=== PATIENT | female | born 1945 | race Caucasian/White ===

== ENCOUNTER 2024-04-01 01:58 | Emergency (ER) | payer MEDICARE, SELFPAY ==
[2024-04-01 01:59] VITALS: BP 157/78; PULSE 103; RESP 19; TEMP 36.3; O2SAT 92; BMI 38.5
--- NOTE | 2024-04-01 02:22 | EDS_ITS ---
HPI HPI - Fall History of Present Illness Chief Complaint: Fall Informant: patient Narrative Narrative: 2 and half days ago, patient states she went [place] a casino and tripped and fell, injuring her right side, she has been having pain in her right lateral rib cage ever since. When she raises her right arm, it hurts there but not in her shoulder or her arm. She denies any other pain or injury but the pain has not gone away, so she presents to a.m. for this. She denies dyspnea. It hurts to move more than anything else when she takes a deep breath it does not hurt. [facility] Medical History (Updated 04/01/24 @ 03:[address] Marco Velasquez MD) Hypothyroidism Hyperlipidemia Type 2 diabetes mellitus Hypertension Home Medications ?Medication ?Instructions ?Recorded ?Last Taken ?Type aspirin 81 mg tablet,delayed 81 mg PO DAILY 04/01/24 Unknown History release (Adult Low Dose Aspirin) citalopram 10 mg tablet (Celexa) 10 mg PO DAILY 04/01/24 Unknown History ezetimibe 10 mg tablet 10 mg PO DAILY 04/01/24 Unknown History glimepiride 4 mg tablet 8 mg PO DAILY 04/01/24 Unknown History hydralazine 50 mg tablet 50 mg PO DAILY 04/01/24 Unknown History hydrochlorothiazide 25 mg tablet 25 mg PO DAILY 04/01/24 Unknown History hydrocodone-acetaminophen 5-325mg 1 tab PO Q6H PRN PRN Pain 4 days 04/01/24 Unknown Rx 5mg-325mg #15 TABLETS levothyroxine 112 mcg tablet 112 mcg PO DAILY 04/01/24 Unknown History lisinopril 20 mg tablet 20 mg PO DAILY 04/01/24 Unknown History metformin 500 mg tablet,extended 1,500 mg PO DAILY 04/01/24 Unknown History release 24 hr metoprolol tartrate 100 mg tablet 100 mg PO DAILY 04/01/24 Unknown History semaglutide 0.25 mg or 0.5 mg (2 0.25 mg subcut FR 04/01/24 Unknown History mg/3 mL) subcutaneous pen injector (Ozempic) simvastatin 80 mg tablet 80 mg PO DAILY 04/01/24 Unknown History Allergy/AdvReac Type Severity Reaction Status Date / Time ampicillin AdvReac PT UNSURE Verified 04/01/24 01:59 OF REACTION Surgical History History of bilateral knee replacement Hx of appendectomy Social History Smoking Status: Never smoker ROS ROS ED Constitutional Constitutional ED: Denies chills or fever(s) Eyes Eyes: Denies change in vision or diplopia ENT ENT ED: Denies rhinorrhea or sore throat Cardiovascular Cardiovascular: Reports as per HPI and chest pain; Denies palpitations Respiratory/Chest Respiratory/Chest: Denies cough or dyspnea Gastrointestinal Gastrointestinal: Denies abdominal pain, diarrhea, nausea or vomiting Genitourinary Genitourinary ED: Denies dysuria or hematuria Musculoskeletal Musculoskeletal: Denies back pain or neck pain Integumentary Denies abscess or rash Neurologic Neurologic: Denies headache(s), paresthesias or weakness Psychiatric Psychiatric: Denies anxiety or suicidal thoughts EXAM Physical Exam Const Vital Signs: 04/01/24 01:59 04/01/24 01:59 Temperature 97.4 F L Temperature Source Temporal Pulse Rate 103 H Respiratory Rate 19 H Respiratory Effort Normal Non-Labored Respiratory Depth Normal Respiratory Pattern Normal Blood Pressure 157/78 H Blood Pressure Mean 104 Pulse Ox 92 Oxygen Delivery Method Room Air Room Air Positive well nourished, well developed and obese General Appearance ED: well developed and NAD Nutritional Appearance: obese HEENT Reports moist mucous membranes normocephalic and atraumatic Face and Sinus: Negative for facial tenderness Eyes PERRL and EOMs intact bilaterally Visual Acuity: other Other Details: no entrapment or pain with extraocular movements Neck full ROM and supple General: Negative for tenderness Chest Wall inspection of chest normal and palpation of chest normal Chest Narrative: Right lateral rib cage/chest wall in the anterior axillary line approximately ribs 4-5 area no crepitance or step-off or subcutaneous emphysema palpable. Chest: symmetrical chest wall rise and tenderness; Negative for crepitus Resp normal respiratory effort and clear to auscultation bilaterally Percussion: other equal BS bilat Cardio regular rate, regular rhythm and no murmurs Rate: regular rate Rhythm: regular rhythm GI non-tender and non-distended Auscultation: normoactive bowel sounds Palpation: soft Back/Spine General Back: other FROM Extremity normal to inspection Extremity Narrative: Full range of motion throughout all 4 extremities without difficulty. General Extremety ED: Negative for edema, pulses abnormal or tenderness General Extremity: Negative for edema or pulses abnormal Neuro oriented x3, CN's II-XII intact bilaterally and no sensory deficits noted [place] Coma Scale: document GCS findings Spontaneous Obeys Commands Oriented 15 Sensorium / Orientation: awake and alert Motor Exam: strength 5/5 throughout Psych mental status grossly normal and thought process normal Skin no rashes or lesions noted and no wounds Lesions: no lesions Rashes: no rashes MDM MDM MDM Narrative Medical decision making narrative: 5 view x-ray series of the right rib cage including a PA chest show a single fracture rib #4 on my interpretation with no pneumothorax. Patient reassured, treatments pain medication and not rib binders which she was considering. Adv ised her not to do this given the increased risk of pneumonia. She is given a dose of [place] here as well as a prescription for at home, supportive care advised we discussed reasons to return, otherwise she may experience weeks of pain and can follow-up with her doctor if it is not getting better. Discharge Plan Triage Chief Complaint: Fall ED Provider: Marco Velasquez Dx/Rx/DC Orders Clinical Impression: Closed fracture of rib of right side, Fall from slip, trip, or stumble Instructions: ED Rib Fracture Prescriptions: New hydrocodone-acetaminophen 5-325 mg tablet 1 tab PO Q6H PRN PRN (Reason: Pain) 4 Days Qty: 15 0RF No Action metformin 500 mg tablet extended release 24 hr 1,500 mg PO DAILY Patient Comments: TAKE 3 TABLETS BY MOUTH ONCE DAILY metoprolol tartrate 100 mg tablet 100 mg PO DAILY Patient Comments: TAKE 1 TABLET BY MOUTH TWICE DAILY simvastatin 80 mg tablet 80 mg PO DAILY Patient Comments: [NO ORIGINAL SIG] lisinopril 20 mg tablet 20 mg PO DAILY Patient Comments: [NO ORIGINAL SIG] hydrochlorothiazide 25 mg tablet 25 mg PO DAILY Patient Comments: TAKE 1 TABLET BY MOUTH ONCE DAILY ezetimibe 10 mg tablet 10 mg PO DAILY Patient Comments: TAKE 1 TABLET BY MOUTH ONCE DAILY levothyroxine 112 mcg tablet 112 mcg PO DAILY Patient Comments: TAKE 1 TABLET BY MOUTH IN THE MORNING ON AN EMPTY STOMACH glimepiride 4 mg tablet 8 mg PO DAILY Patient Comments: TAKE 1 TABLET BY MOUTH TWICE DAILY citalopram [Celexa] 10 mg tablet 10 mg PO DAILY hydralazine 50 mg tablet 50 mg PO DAILY Patient Comments: TAKE 1 TABLET BY MOUTH ONCE DAILY aspirin [Adult Low Dose Aspirin] 81 mg tablet,delayed release (DR/EC) 81 mg PO DAILY Ozempic 0.25 mg or 0.5 mg (2 mg/3 mL) pen injector 0.25 mg SUBCUT FR Patient Comments: [NO ORIGINAL SIG] Primary Care Provider: Elle Beckett Referrals: Elle Beckett DO [Primary Care Provider] - 10-14 Days if not better Print Language: Ukrainian Disposition Disposition: Home, Self Care
--- NOTE | 2024-04-01 02:30 | RAD_ITS ---
INDICATION: fall/injury EXAMINATION/TECHNIQUE: X-RAY - XR Ribs Unilateral W/ PA Chest Min 3 Views COMPARISON: No relevant prior comparison study available FINDINGS: SOFT TISSUES: No soft tissue swelling or gas. BONES: Nondisplaced right lateral fourth rib fracture. No sclerotic or destructive changes observed. VISUALIZED LUNGS: Clear. No pneumothorax. RAD/Ribs Uni Min 3V w/PA Chest IMPRESSION: Nondisplaced right lateral fourth rib fracture. No additional fractures are seen. Electronically Signed: Osiel Oliveira MD at 3:25 EDT ,
[2024-04-01] MEDS: HYDROcodone Bitartrate/Apap 5/325 Tablet PO (03:52)
[2024-04-01 03:53] VITALS: BP 144/70; PULSE 81; RESP 16; TEMP 36.3; O2SAT 90
== END 2024-04-01 03:54 | disposition home or self-care (01) ==
PROVIDERS: Emergency Provider Emergency Medicine; PCP Internal Medicine; Visit Provider Emergency Medicine
DX: S22.31XA Fracture of one rib, right side, initial encounter for closed fracture (principal); E11.9 Type 2 diabetes mellitus without complications; W01.0XXA Fall on same level from slipping, tripping and stumbling without subsequent striking against object, initial encounter; Y93.01 Activity, walking, marching and hiking; Y92.59 Other trade areas as the place of occurrence of the external cause; E03.9 Hypothyroidism, unspecified; E78.5 Hyperlipidemia, unspecified; I10 Essential (primary) hypertension; Z79.82 Long term (current) use of aspirin; Z79.899 Other long term (current) drug therapy; Z79.84 Long term (current) use of oral hypoglycemic drugs; Z79.85 Long-term (current) use of injectable non-insulin antidiabetic drugs; Z90.49 Acquired absence of other specified parts of digestive tract
CPT/HCPCS: 71101; 99283

== ENCOUNTER 2025-01-23 18:10 | Inpatient (IN) | payer MEDICARE, SELFPAY ==
[2025-01-23] VITALS (8 sets, daily range): BP systolic 117–155; BP diastolic 53–105; PULSE 79–116; RESP 16–30; TEMP 36.8–39.1; O2SAT 84–100; BMI 35.5
--- NOTE | 2025-01-23 18:59 | EKG12_ITS ---
Test Reason : DYSRHYTHMIA Blood Pressure : */* mmHG Vent. Rate : 115 BPM Atrial Rate : 115 BPM P-R Int : 132 ms QRS Dur : 76 ms QT Int : 372 ms P-R-T Axes : 61 6 50 degrees QTcB Int : 514 ms Sinus tachycardia Nonspecific ST abnormality Abnormal ECG Confirmed by SE CHANDRA, ALDAIR ([id number]), video news editor MARY MADSEN ([id number]) on 01/26/2025 11:02:32 AM Referred By: Confirmed By: ALDAIR SAEZ MD
--- NOTE | 2025-01-23 19:13 | CT_ITS ---
EXAM: FINDINGS: * ACUTE: No acute infarct or hemorrhage. No mass effect or herniation. * BRAIN PARENCHYMA: Patchy supratentorial hypodensity, nonspecific, but likely secondary to moderate chronic microvascular ischemia. * VENTRICLES/EXTRA-AXIAL SPACES: Moderate generalized volume loss with concordant ventricular enlargement. * EXTRACRANIAL STRUCTURES: Visualized osseous structures are normal. Soft tissues are normal. CT/Brain/Head without Contrast IMPRESSION: No acute intracranial findings. Chronic microvascular ischemia and involutional changes. CLINICAL HISTORY: AMS Reading Location: [facility]
--- NOTE | 2025-01-23 19:16 | EX.ED.DYSGE1 ---
HPI History of Present Illness Chief Complaint: Nausea/Vomiting/Diarrhea Narrative Narrative: Patient is a 79-year-old female with past medical history of hypothyroidism, hypertension, type 2 diabetes, hyperlipidemia who presented to the emergency department chief complaint of altered mental status not feeling well. According to patient's family member she has been ill for the last several weeks however her brother noted that he left the house and when he came back to check on her she was staring out into space. He eventually got her to state that she was cold and not feeling well. She then went unresponsive again he states that he told her that if she would not respond to him he he was going to call EMS. Patient's brother stated that she was not responding so therefore EMS was called and she was brought here for the valuation management. According to them she was hypoxic she is not normally on oxygen at home. [facility] Medical History Hypothyroidism Hyperlipidemia Type 2 diabetes mellitus Hypertension Home Medications ?Medication ?Instructions ?Recorded ?Last Taken ?Type aspirin 81 mg tablet,delayed 81 mg PO DAILY 04/01/24 Unknown History release (Adult Low Dose Aspirin) citalopram 10 mg tablet (Celexa) 10 mg PO DAILY 04/01/24 Unknown History ezetimibe 10 mg tablet 10 mg PO DAILY 04/01/24 Unknown History glimepiride 4 mg tablet 8 mg PO DAILY 04/01/24 Unknown History hydralazine 50 mg tablet 50 mg PO DAILY 04/01/24 Unknown History hydrochlorothiazide 25 mg tablet 25 mg PO DAILY 04/01/24 Unknown History hydrocodone-acetaminophen 5-325mg 1 tab PO Q6H PRN PRN Pain 4 days 04/01/24 Unknown Rx 5mg-325mg #15 TABLETS levothyroxine 112 mcg tablet 112 mcg PO DAILY 04/01/24 Unknown History lisinopril 20 mg tablet 20 mg PO DAILY 04/01/24 Unknown History metformin 500 mg tablet,extended 1,500 mg PO DAILY 04/01/24 Unknown History release 24 hr metoprolol tartrate 100 mg tablet 100 mg PO DAILY 04/01/24 Unknown History semaglutide 0.25 mg or 0.5 mg (2 0.25 mg subcut FR 04/01/24 Unknown History mg/3 mL) subcutaneous pen injector (Ozempic) simvastatin 80 mg tablet 80 mg PO DAILY 04/01/24 Unknown History Allergy/AdvReac Type Severity Reaction Status Date / Time ampicillin AdvReac PT UNSURE Verified 01/23/25 18:18 OF REACTION Surgical History History of bilateral knee replacement Hx of appendectomy Social History Smoking Status: Never smoker ROS ROS ED ROS Narrative Constitutional: Denies any fevers, chills, headaches, lightness, dizziness Eyes: Denies change in vision double vision blurry vision Cardiovascular: Denies chest pain or palpitations Respiratory: Complains of cough but states that she has been coughing for significant time Abdomen: Complains of nausea and vomiting states that she had a bowel movement yesterday denies abdominal pain : Denies urinary symptoms Neurological: Denies numbness, weakness, tingling Musculoskeletal: Denies back pain Skin: Denies rashes or lesions EXAM Physical Exam Narrative Exam Narrative: General: Patient lying in bed rest comfortably did not appear to be in acute distress Head: Atraumatic, normocephalic Eyes: PERRL bilaterally, EOMI bilaterally, no conjunctival injection noted Neck: Soft, supple, trachea midline Cardiovascular: Patient tachycardic with a regular rhythm no murmurs gallops rubs are noted Respiratory: Clear to auscultation bilaterally Abdomen: Soft, nondistended, tender to palpation Extremities: +4/5 strength noted in the bilateral upper and lower extremities, radial pulses +2/4 in the bilateral extremities, no pedal edema on exam Neurological: Patient following commands as she was at [facility] year is 2024 and we were going into spring. NIH is 0 GCS 15 Skin: Warm, dry, intact no rashes or lesions noted Const Vital Signs: 01/23/25 18:15 01/23/25 18:15 01/23/25 18:18 Temperature 102.4 F H 102.4 F H Temperature Source Oral Oral Pulse Rate 116 H 115 H 115 H Respiratory Rate 18 16 25 H Blood Pressure 155/70 H 155/70 H 155/70 H Blood Pressure Mean 98 98 98 Pulse Ox 92 84 91 Oxygen Delivery Method Nasal Cannula Room Air Nasal Cannula Oxygen Flow Rate (L/min) 3 3 01/23/25 19:11 01/23/25 19:16 01/23/25 20:00 Temperature 98.4 F Temperature Source Oral Pulse Rate 79 104 H Respiratory Rate 19 H 17 Blood Pressure 139/53 H 150/80 H Blood Pressure Mean 81 103 Pulse Ox 100 92 Oxygen Delivery Method Room Air Nasal Cannula Oxygen Flow Rate (L/min) 2 01/23/25 21:00 01/23/25 21:39 01/23/25 22:00 Temperature 98.4 F 98.4 F 98.3 F Temperature Source Oral Oral Pulse Rate 102 H 102 H 100 Respiratory Rate 30 H 30 H 20 H Blood Pressure 117/81 H 117/81 H 150/105 H Blood Pressure Mean 93 93 120 Pulse Ox 94 94 98 Oxygen Delivery Method Nasal Cannula Oxygen Flow Rate (L/min) 01/23/25 23:00 01/24/25 00:00 Temperature 98.3 F 98.3 F Temperature Source Oral Oral Pulse Rate 86 90 Respiratory Rate 28 H 22 H Blood Pressure 137/83 H 143/62 H Blood Pressure Mean 101 89 Pulse Ox 96 98 Oxygen Delivery Method Nasal Cannula Nasal Cannula Oxygen Flow Rate (L/min) 2 2 MDM MDM MDM Narrative Medical decision making narrative: Patient is a 79-year-old female who presented to the emergency department the chief complaint of altered mental status, hypoxia and not feeling well. On the differential diagnose includes but not limited to ACS, pneumonia, press for infection secondary viral etiology, intracranial hemorrhage, hypercapnia, UTI. Once workup is obtained reviewed she will be reevaluated. Patient CBC reviewed and was significant for leukocytosis of 17,000, hemoglobin 13.8, INR normal at 1, PT of 12.9. Patient's venous blood gas showed pH 7.59, sodium was noted 134, potassium noted to be low indicating hypokalemia at 2.6 she was given 40 mill equivalents orally and 40 mill equivalents intravenously. Patient's creatinine normal at 0.83. Patient's lactic acid elevated 2.7, troponin was noted be 62 with a delta troponin obtained noted be 59. Patient's EKG showed sinus tachycardia with a rate of [address] changes noted in leads V3 through V5. Patient proBNP elevated 888. Patient's urinalysis was significant for urinary tract infection with positive nitrites 100 leukocyte esterase 25-50 white cells with 2+ bacteria she was given a gram Rocephin. Urine was sent for culture. Patient's chest x-ray was reviewed which showed no acute cardiopulmonary processes as reviewed by myself and by radiology. Patient CT head and brain without contrast showed no acute intracranial findings chronic microvascular ischemia and involutional changes noted. At this point time patient will warrant admission to the hospital for her hypoxia, altered mental status and her urinary tract infection. Will discuss with hospitalist Discussed case with hospitalist Dr. Ventura who would like a CT abdomen pelvis added on. Since we are getting a CT abdomen pelvis and have no great explanation for her hypoxia at this point time we will also add on a CT angiography of the chest. Patient will be admitted to the intensive care unit for further evaluation management. Patient was notified all question concerns answered at bedside. Patient admitted at 12:36 AM. At 2114 reperfusion assessment performed and patient remains hypertensive therefore no vasopressors indicated. Lab Data Labs: Laboratory Results - last 24 hr 01/23/25 01/23/25 01/23/25 19:30 19:32 20:11 WBC 17.7 H RBC 4.87 Hgb 13.8 Hct 41.7 MCV 85.6 MCH 28.3 MCHC 33.1 RDW Std Deviation 40.6 RDW Coeff of Janna 13.0 Plt Count TNP MPV 9.7 Immature Gran % (Auto) 1.100 H Neut % (Auto) 89.8 H Lymph % (Auto) 3.5 L Rooks % (Auto) 4.6 Eos % (Auto) 0.3 Baso % (Auto) 0.7 Absolute Neuts (auto) 15.9 H Absolute Lymphs (auto) 0.62 L Nucleated RBC % 0 Platelet Estimate MOD INC Plt Morphology Comment CLUMPED Polychromasia RARE PT Cancelled INR Cancelled APTT Cancelled Sodium 134 Potassium 2.6 L* Chloride 94 L Carbon Dioxide 24.5 Anion Gap 15 BUN 15 Creatinine 0.83 Estim Creat Clear Calc 51.46 Est GFR (MDRD) Non-Af 72 BUN/Creatinine Ratio 18.3 Glucose 293 H Lactic Acid 2.7 H* Calcium 8.7 Total Bilirubin 0.53 AST 19 ALT 14 Alkaline Phosphatase 103 Troponin T High Sens 62 H* Troponin T Hi Sens 2 Hr NT pro BNP II Total Protein 6.4 Albumin 3.2 L Globulin 3.3 Albumin/Globulin Ratio 1.0 TSH 2.040 Free T4 1.20 Free T3 pg/dL 2.2 Urine Color Yellow Urine Clarity Sl. Cloudy Urine pH 6.0 Ur Specific [place] 1.015 Urine Protein 100 H Urine Glucose (UA) 250 H Urine Ketones 5 H Urine Occult Blood 25 H Urine Nitrite Positive H Urine Bilirubin Negative Urine Urobilinogen 1 H Ur Leukocyte Esterase 100 H Urine RBC 5-10 SEEN Urine WBC 25-50 SEEN Ur Squamous Epith Cells 0-5 SEEN Urine Bacteria 2+ Urine Mucus 1+ 01/23/25 01/23/25 21:18 22:20 WBC RBC Hgb Hct MCV MCH MCHC RDW Std Deviation RDW Coeff of Janna Plt Count MPV Immature Gran % (Auto) Neut % (Auto) Lymph % (Auto) Rooks % (Auto) Eos % (Auto) Baso % (Auto) Absolute Neuts (auto) Absolute Lymphs (auto) Nucleated RBC % Platelet Estimate Plt Morphology Comment Polychromasia PT 12.9 INR 1.0 APTT 22.7 L Sodium Potassium Chloride Carbon Dioxide Anion Gap BUN Creatinine Estim Creat Clear Calc Est GFR (MDRD) Non-Af BUN/Creatinine Ratio Glucose Lactic Acid Calcium Total Bilirubin AST ALT Alkaline Phosphatase Troponin T High Sens Troponin T Hi Sens 2 Hr 59 H* NT pro BNP II 888 Total Protein Albumin Globulin Albumin/Globulin Ratio TSH Free T4 Free T3 pg/dL Urine Color Urine Clarity Urine pH Ur Specific [place] Urine Protein Urine Glucose (UA) Urine Ketones Urine Occult Blood Urine Nitrite Urine Bilirubin Urine Urobilinogen Ur Leukocyte Esterase Urine RBC Urine WBC Ur Squamous Epith Cells Urine Bacteria Urine Mucus ABG Data ABG results: ABG 01/23/25 19:43 Specimen Type PITER Sample Site Not entered VBG pH 7.59 H VBG pO2 56 H VBG HCO3 29 H VBG Total CO2 30 VBG O2 Sat (Calc) 93 H VBG Base Excess 7 H POC Mix VBG pCO2 Pt Tmp 30.0 L O2 Delivery Device Cannula Radiography Diagnostic Testing: Clinical Impression(s) from Imaging Studies Brain CT 01/23/25 19:13 IMPRESSION: No acute intracranial findings. Chronic microvascular ischemia and involutional changes. CLINICAL HISTORY: AMS [facility]-Ray 01/23/25 19:50 IMPRESSION: NEGATIVE CHEST Reading Location: [facility] Discharge Plan Triage Chief Complaint: Nausea/Vomiting/Diarrhea ED Provider: Cedrick Vazquez Dx/Rx/DC Orders Clinical Impression: Acute hypoxemic respiratory failure, Altered mental status, Urinary tract infection, Acidosis, lactic Prescriptions: No Action metformin 500 mg tablet extended release 24 hr 1,500 mg PO DAILY Patient Comments: TAKE 3 TABLETS BY MOUTH ONCE DAILY metoprolol tartrate 100 mg tablet 100 mg PO DAILY Patient Comments: TAKE 1 TABLET BY MOUTH TWICE DAILY simvastatin 80 mg tablet 80 mg PO DAILY Patient Comments: [NO ORIGINAL SIG] lisinopril 20 mg tablet 20 mg PO DAILY Patient Comments: [NO ORIGINAL SIG] hydrochlorothiazide 25 mg tablet 25 mg PO DAILY Patient Comments: TAKE 1 TABLET BY MOUTH ONCE DAILY ezetimibe 10 mg tablet 10 mg PO DAILY Patient Comments: TAKE 1 TABLET BY MOUTH ONCE DAILY levothyroxine 112 mcg tablet 112 mcg PO DAILY Patient Comments: TAKE 1 TABLET BY MOUTH IN THE MORNING ON AN EMPTY STOMACH glimepiride 4 mg tablet 8 mg PO DAILY Patient Comments: TAKE 1 TABLET BY MOUTH TWICE DAILY citalopram [Celexa] 10 mg tablet 10 mg PO DAILY hydralazine 50 mg tablet 50 mg PO DAILY Patient Comments: TAKE 1 TABLET BY MOUTH ONCE DAILY aspirin [Adult Low Dose Aspirin] 81 mg tablet,delayed release (DR/EC) 81 mg PO DAILY Ozempic 0.25 mg or 0.5 mg (2 mg/3 mL) pen injector 0.25 mg SUBCUT FR Patient Comments: [NO ORIGINAL SIG] hydrocodone-acetaminophen 5-325 mg tablet 1 tab PO Q6H PRN PRN (Reason: Pain) 4 Days Qty: 15 0RF Primary Care Provider: Elle Beckett Referrals: Elle Beckett DO [Primary Care Provider] - Print Language: St Helenian Disposition Disposition: Acute Care Hospital [facility]
[2025-01-23 19:47] LABS: Blood Gas Specimen Type VEN; O2 Delivery Device Cannula; SITE Not entered; VBG BASE EXCESS 7 mmol/L (-1.0-3.5); VBG Bicarbonate 29 mmol/L (22-26); VBG PO2 56 mmHg (25-40); VBG SO2 93 % (50-70); VBG TCO2 30 mmol/L (23-33); VBG pH 7.59 (7.32-7.42)
--- NOTE | 2025-01-23 19:50 | RAD_ITS ---
PROCEDURE: CHEST PA AND LATERAL 01/23/2025 REASON FOR EXAM: SOB TECHNIQUE: Frontal and lateral views of the chest. COMPARISON: 04/01/2024 FINDINGS: The heart size is normal. The mediastinal contour is unremarkable. The lungs are clear. The bones are unremarkable. RAD/Chest PA and Lateral IMPRESSION: NEGATIVE CHEST Reading Location: [id number]
[2025-01-23 19:54] LABS: Color, Urine Yellow (Yellow); Glucose, Dipstick 250 mg/dl (Normal); Ketone-Dipstick 5 mg/dl (Negative); Leukocyte Esterase-Dipstick 100 /ul (Negative); Nitrite-Dipstick Positive (Negative); Occult Blood-Urine 25 /ul (Negative); Protein-Dipstick 100 mg/dl (Negative); Specific Gravity, Urine 1.015 (1.002-1.030); Urine Bilirubin Dipstick Negative (Negative); Urine Clarity Sl. Cloudy (Clear); Urine Urobilinogen 1 mg/dl (Normal)
[2025-01-23] MEDS: 0.9% Normal Saline (1000mL) 1,000 ML 999 ML IV ×3 (20:09→21:49)
[2025-01-23] MEDS: Acetaminophen 500 MG Tablet 1000 MG PO (20:14)
[2025-01-23 20:15] LABS: Lactic Acid 2.7 mmol/L (0.0-2.0)
[2025-01-23 20:23] LABS: Bacteria 2+ /hpf (None Seen); Mucous, Urine 1+ /hpf (<or=2+); Red Blood Cells-Urine 5-10 SEEN /hpf (0-5); Squamous Epithelial Cells - UA 0-5 SEEN /hpf (5-10); White Blood Cells 25-50 SEEN /hpf (0-5)
[2025-01-23 20:31] LABS: Absolute Lymphocyte Count 0.62 X10^3/uL (0.83-4.51); Absolute Neutrophil Count 15.9 X10^3/uL (2.0-7.7); Basophil# 0.12 X10^3/uL; Basophil% 0.7 % (0-1); Eosinophil# 0.05 X10^3/uL; Eosinophils% 0.3 % (0-5); Hematocrit 41.7 % (37-47); Hemoglobin 13.8 g/dL (12.0-15.0); Lymphocyte # 0.62 X10^3/ul (0.83-4.51); Lymphocyte % 3.5 % (19-41); Mean Corp Hgb Conc 33.1 g/dL (32-36); Mean Corpuscular Hgb 28.3 pg (27.0-32.0); Mean Corpuscular Volume 85.6 fL (81-99); Mean Platelet Vol. 9.7 fl (6.2-12.0); Monocyte# 0.82 X10^3/uL; Monocyte% 4.6 % (0-10); NRBC Flagged by Analyzer 0 % (0-5); Neutrophil # 15.86 X10^3/uL (2.7-7.7); Neutrophil % 89.8 % (47-70); POSITIVE COUNT YES; RBC Distribution Width SD 40.6 fl (35.1-43.9); Red Blood Count 4.87 M/mm3 (4.2-5.4); White Blood Count 17.7 K/mm3 (4.4-11.0)
[2025-01-23 21:00] LABS: Free T3 2.2 pg/mL (2.18-3.98)
[2025-01-23 21:05] LABS: AST(SGOT) 19 U/L (<=31); Alanine Aminotransfer ALT/SGPT 14 U/L (<=34); Albumin, Serum 3.2 g/dL (3.4-4.8); Alkaline Phosphatase 103 U/L (35-104); Anion Gap 15 (5-15); BUN 15 mg/dL (4-19); BUN/Creat Ratio 18.3 RATIO (10-20); Calcium,Total 8.7 mg/dL (7.6-11.0); Carbon Dioxide 24.5 mmol/L (21.0-32.0); Chloride 94 mmol/L (98-108); Creatinine, Serum 0.83 mg/dL (0.70-1.20); EST Glomerular Filtration Rate 72 (>60); Estimated Creatinine Clearance 51.46 ml/min (50-250); Globulin 3.3 g/dL (2.2-4.2); Glucose 293 mg/dL (70-99); Potassium 2.6 mmol/L (3.3-5.1); Protein, Total 6.4 g/dL (5.9-8.4); Sodium Level 134 mmol/L (133-145); Total Bilirubin 0.53 mg/dL (0.00-1.30); Troponin T High Sensitivity 62 ng/L (<=14)
[2025-01-23] MEDS: Ceftriaxone 1 GM/50 ML BAG IV (21:16)
[2025-01-23] MEDS: Potassium Chloride Oral Tablet 20 MEQ 40 MEQ PO (21:27)
[2025-01-23] MEDS: Potassium Chloride 10mEq/100mL 10 MEQ/100 ML IV.SOLN. 100 MEQ IV BOLUS ×3 (21:47→23:59)
[2025-01-23 21:53] LABS: Differential Indicated SCAN CRITERIA MET; Platelet Morphology CLUMPED
[2025-01-23 21:54] LABS: Prothrombin Time (Protime)PT. 12.9 SECONDS (11.7-14.9)
[2025-01-23 21:58] LABS: Platelet Estimate MOD INC (ADEQ); Polychromasia RARE
[2025-01-23 21:59] LABS: Partial Thromboplast Time 22.7 Seconds (24.1-36.2)
[2025-01-23 23:36] LABS: Troponin T High Sens 2 HR 59 ng/L (<=14)
[2025-01-23 23:59] LABS: Pro- Brain NATRIURETIC PEPTIDE 888 pg/mL (<=1800)
[2025-01-24] VITALS (17 sets, daily range): BP systolic 112–192; BP diastolic 44–91; PULSE 72–97; RESP 16–25; TEMP 36.4–37.6; O2SAT 92–99; BMI 37.8
--- NOTE | 2025-01-24 00:34 | HP.PCM.HOS_ITS ---
[facility] - General General Date of Admission: 01/24/25 Date of Service: 01/24/25 Chief Complaint: SOB, Nausea and Vomiting with AMS. HPI Narrative MERCY MORROW, is a 79 F with a past medical history of essential hypertension; on metoprolol, lisinopril, hydralazine and hydrochlorothiazide, hyperlipidemia; on ezetimibe and simvastatin, hypothyroidism; on levothyroxine, obesity; with BMI of 35.5 this admission on semaglutide sq q. Sunday, DM-2; of unknown control on metformin and glimepiride, history of depression; on citalopram, history of appendectomy, listed allergy to ampicillin (?), [place]; with subsequent Right rib cage fracture (03/2024) and OA; with bilateral TKR's who presents to [facility] ER complaining of shortness of breath, nausea and vomiting with altered mental status. Ms. Morrow is not a fully-reliable historian at this time so permission was gathered from chart, medical staff and computer. According to the records the patient's brother reported to the ER physician she had been ill for several weeks but then when he came to check on her earlier this evening she was obviously confused and staring out into space. He eventually coaxed her into communicating and she indicated she was cold and not feeling well followed by another episode of unresponsiveness which eventually caused him to activate EMS. The brother also indicated the patient is not on oxygen at home and is not chronically dyspneic. In the ER she was noted to have a UA grossly positive for Acute Cystitis; with microscopic hematuria with Fever of 102.4 degrees Fahrenheit present on admission along with corresponding Leukocytosis of 17.7 K with Left-shift of 1.1% and Lactic Acidosis of 2.7 mmol/L present on admission consistent with suspected Sepsis complicated by Acute Respiratory Alkalosis with Hypoxia with VBG indicating pH 7.59/VBG PaO2 56 mmHg/VBG HCO3 29 mmol/L saturating 93% on 2L NC due to suspected Aspiration Pneumonia compounded by severe Hypokalemia of 2.6 mmol/L present on admission with incidentally noted elevated troponin T of 62 ng/L present on admission suspected to be due to Acute Cardiac Strain all combining to cause clinical evidence of Acute Metabolic Encephalopathy. CT scan of the chest, abdomen and pelvis were requested to be done with results pending at this time. She was then admitted to the ICU for ongoing care for status expected to extend beyond 2 midnights. [facility] Medical History Hypothyroidism Hyperlipidemia Type 2 diabetes mellitus Hypertension Home Medications ?Medication ?Instructions ?Recorded ?Last Taken ?Type aspirin 81 mg tablet,delayed 81 mg PO DAILY 04/01/24 U nknown History release (Adult Low Dose Aspirin) citalopram 10 mg tablet (Celexa) 10 mg PO DAILY Unknown History ezetimibe 10 mg tablet 10 mg PO DAILY 04/01/24 Unkn own History glimepiride 4 mg tablet 8 mg PO DAILY 04/01/24 Unkno wn History hydralazine 50 mg tablet 50 mg PO DAILY 04/01/24 Unkn own History hydrochlorothiazide 25 mg tablet 25 mg PO DAILY Unknown History hydrocodone-acetaminophen 5-325mg 1 tab PO Q6H PRN PRN Pain 4 days 04/01/24 Unknown Rx 5mg-325mg #15 TABLETS levothyroxine 112 mcg tablet 112 mcg PO DAILY 04/01/24 Unknown History lisinopril 20 mg tablet 20 mg PO DAILY 04/01/24 Unkn own History metformin 500 mg tablet,extended 1,500 mg PO DAILY Unknown History release 24 hr metoprolol tartrate 100 mg tablet 100 mg PO DAILY 03/13 12/05 Unknown History semaglutide 0.25 mg or 0.5 mg (2 0.25 mg subcut FR Unknown History mg/3 mL) subcutaneous pen injector (Ozempic) simvastatin 80 mg tablet 80 mg PO DAILY 04/01/24 Unkn own History Allergy/AdvReac Type Severity Reaction Status Date / Time ampicillin AdvReac PT UNSURE Verified 01/23/25 18:18 OF REACTION Surgical History History of bilateral knee replacement Hx of appendectomy Social History Smoking Status: Never smoker ROS ROS Narrative Full review systems was not possible due to patient's metabolic encephalopathy. Vital Signs Vital Signs Vital Signs: 01/23/25 18:15 01/23/25 18:15 01/23/25 18:18 Temperature 102.4 F H 102.4 F H Temperature Source Oral Oral Pulse Rate 116 H 115 H 115 H Respiratory Rate 18 16 25 H Blood Pressure 155/70 H 155/70 H 155/70 H Blood Pressure Mean 98 98 98 Pulse Ox 92 84 91 Oxygen Delivery Method Nasal Cannula Room Air Nasal Cannula Oxygen Flow Rate (L/min) 3 3 01/23/25 19:11 01/23/25 19:16 01/23/25 20:00 Temperature 98.4 F Temperature Source Oral Pulse Rate 79 104 H Respiratory Rate 19 H 17 Blood Pressure 139/53 H 150/80 H Blood Pressure Mean 81 103 Pulse Ox 100 92 Oxygen Delivery Method Room Air Nasal Cannula Oxygen Flow Rate (L/min) 2 01/23/25 21:00 01/23/25 21:39 01/23/25 22:00 Temperature 98.4 F 98.4 F 98.3 F Temperature Source Oral Oral Pulse Rate 102 H 102 H 100 Respiratory Rate 30 H 30 H 20 H Blood Pressure 117/81 H 117/81 H 150/105 H Blood Pressure Mean 93 93 120 Pulse Ox 94 94 98 Oxygen Delivery Method Nasal Cannula Oxygen Flow Rate (L/min) 01/23/25 23:00 01/24/25 00:00 Temperature 98.3 F 98.3 F Temperature Source Oral Oral Pulse Rate 86 90 Respiratory Rate 28 H 22 H Blood Pressure 137/83 H 143/62 H Blood Pressure Mean 101 89 Pulse Ox 96 98 Oxygen Delivery Method Nasal Cannula Nasal Cannula Oxygen Flow Rate (L/min) 2 2 Weight Weight: 181 lb 14.102 oz Body Mass Index (BMI) 35.5 Physical Exam Const alert and no apparent distress Constitutional Narrative: Obese, dyspneic, confused and chronically ill in appearance. General Appearance: cooperative Orientation / Consciousness: confused HEENT normocephalic, head/scalp atraumatic, hearing grossly normal bilaterally and moist oral mucous membranes Eyes PERRL and EOMs intact bilaterally Neck no lymphadenopathy and supple Resp normal respiratory effort, no retractions, no use of accessory muscles and clear to auscultation bilaterally Cardio regular rate and regular rhythm GI normal to inspection, nondistended, normoactive bowel sounds, soft to palpation, non-tender and non-distended GI Narrative: Obese. Extremity normal to inspection and full ROM Skin Skin Narrative: Patient has evidence of rash, abscess, wounds or jaundice. Neuro CN's II-XII intact bilaterally, moves all extremities and no focal motor deficits Sensorium / Orientation: awake, alert, oriented to person and oriented to place Speech: speech normal Psych affect normal Results Medical Records Data Attestation: I reviewed the patient's medical records Lab / Micro Data Attestation: I reviewed the patient's lab results. 01/23/25 20:11 01/23/25 20:11 Labs: Laboratory Results - last 24 hr 01/23/25 19:30: Urine Color Yellow, Urine Clarity Sl. Cloudy, Urine pH 6.0, Ur Specific [place] 1.015, Urine Protein 100 H, Urine Glucose (UA) 250 H, Urine Ketones 5 H, Urine Occult Blood 25 H, Urine Nitrite Positive H, Urine Bilirubin Negative, Urine Urobilinogen 1 H, Ur Leukocyte Esterase 100 H, Urine RBC 5-10 SEEN, Urine WBC 25-50 SEEN, Ur Squamous Epith Cells 0-5 SEEN, Urine Bacteria 2+, Urine Mucus 1+ 01/23/25 19:32: Lactic Acid 2.7 H* 01/23/25 20:11: WBC 17.7 H, RBC 4.87, Hgb 13.8, Hct 41.7, MCV 85.6, MCH 28.3, MCHC 33.1, RDW Std Deviation 40.6, RDW Coeff of Janna 13.0, Plt Count TNP, MPV 9.7, Immature Gran % (Auto) 1.100 H, Neut % (Auto) 89.8 H, Lymph % (Auto) 3.5 L, [place] % (Auto) 4.6, Eos % (Auto) 0.3, Baso % (Auto) 0.7, Absolute Neuts (auto) 15.9 H, Absolute Lymphs (auto) 0.62 L, Nucleated RBC % 0, Platelet Estimate MOD INC, Plt Morphology Comment CLUMPED, Polychromasia RARE, PT Cancelled, INR Cancelled, APTT Cancelled, Sodium 134, Potassium 2.6 L*, Chloride 94 L, Carbon Dioxide 24.5, Anion Gap 15, BUN 15, Creatinine 0.83, Estim Creat Clear Calc 51.46, Est GFR (MDRD) Non-Af 72, BUN/Creatinine Ratio 18.3, Glucose 293 H, Calcium 8.7, Total Bilirubin 0.53, AST 19, ALT 14, Alkaline Phosphatase 103, T roponin T High Sens 62 H*, Total Protein 6.4, Albumin 3.2 L, Globulin 3.3, Albumin/Globulin Ratio 1.0, TSH 2.040, Free T4 1.20, Free T3 pg/dL 2.2 01/23/25 21:18: PT 12.9, INR 1.0, APTT 22.7 L 01/23/25 22:20: Troponin T Hi Sens 2 Hr 59 H*, NT pro BNP II 888 Micro: Microbiology 01/23/25 19:26 Mucosa - Nose SARS-CoV-2, Influenza & RSV (PCR) - Final ABG Data ABG results: ABG 01/23/25 19:43 Specimen Type PITER Sample Site Not entered VBG pH 7.59 H VBG pO2 56 H VBG HCO3 29 H VBG Total CO2 30 VBG O2 Sat (Calc) 93 H VBG Base Excess 7 H POC Mix VBG pCO2 Pt Tmp 30.0 L O2 Delivery Device Cannula Imaging Radiology Impression Brain CT 01/23/25 19:13 IMPRESSION: No acute intracranial findings. Chronic microvascular ischemia and involutional changes. CLINICAL HISTORY: AMS Reading Location: [facility] Chest X-Ray 01/23/25 19:50 IMPRESSION: NEGATIVE CHEST Reading Location: [id number] Imaging Services [address] [place] [id number] CTA Chest W/WO Contrast MR#: [id number] Acct: [id number] Name: MERCY MORROW Rep #: [id number] : 1945 F 79 From: Viet Menendez MD PCP: Dr. Elle Beckett DO Status: ADM IN Study: CTA Chest W/WO Contrast Date of Exam: 01/24/25 Exam# [id number] Ordering Dr: Cedrick Vazquez DO PROCEDURE: CTA CHEST W/WO CONTRAST REASON FOR EXAM: HYPOXIA, SOB TECHNIQUE: CTA imaging of the chest with intravenous contrast. 3D reconstructions. Coronal and sagittal and MIP reformatted images CONTRAST: 100 cc Isovue 370 COMPARISON: None. FINDINGS: No evidence of filling defect to suggest pulmonary embolism. Main pulmonary artery measures 3.5 cm can be seen with pulmonary artery hypertension, nonspecific. Thoracic aorta within limits. Three-vessel coronary calcification appears greatest at the proximal LAD. No pericardial or pleural effusion. The central airways appear patent. Peripheral area of subpleural scarring right middle lobe greater than lingula with subjacent areas of traction bronchiectasis. Bilateral dependent lower lobe atelectasis or possible scarring. Lungs otherwise appear clear. No focal consolidation. Partially imaged lower cervical spondylosis/discogenic change. Note of previous nonacute rib fractures. CT/CTA Chest W/WO Contrast IMPRESSION: No evidence of filling defect to suggest pulmonary embolism. Main pulmonary artery measures 3.5 cm can be seen with pulmonary artery hypertension, nonspecific. Three-vessel coronary calcification appears greatest at the proximal LAD. No pericardial or pleural effusion. The central airways appear patent. Peripheral area of subpleural scarring right middle lobe greater than lingula with subjacent areas of traction bronchiectasis. Bilateral dependent lower lobe atelectasis or possible scarring. Lungs otherwise appear clear. No focal consolidation. One or more dose reduction techniques were used (e.g., Automated exposure control, adjustment of the mA and/or kV according to patient size, use of iterative reconstruction technique). Reading Location: [facility] CC: Dr. Elle Beckett DO; Dr. Cedrick Vazquez DO ~ Maintenance Repairer: Signed -- [facility] Imaging Services [address] [facility] [address] [place], [place] [address] Abdomen/Pelvis W IV Cont ONLY MR#: [id number] Acct: [id number] Name: MERCY MORROW Rep #: [id number] : 1945 F 79 From: Viet Menendez MD PCP: Dr. Elle Beckett DO Status: ADM IN Study: Abdomen/Pelvis W IV Cont ONLY Date of Exam: 01/24/25 Exam# [id number] Ordering Dr: Cedrick Vazquez DO PROCEDURE: ABDOMEN/PELVIS W IV CONT ONLY 01/24/2025 REASON FOR EXAM: N/V TECHNIQUE: CT of the abdomen and pelvis with contrast with coronal and sagittal reformatted images and delayed images through the kidneys CONTRAST: Isovue 370 VOLUME: 100mL One or more dose reduction techniques were used (e.g., Automated exposure control, adjustment of the mA and/or kV according to patient size, use of iterative reconstruction technique. RADIATION DOSE SUMMARY: CTDlvol: 22.49 mGy DLP: 2547.61 mGycm COMPARISON: None. FINDINGS: Small low-density focus within the left lobe of the liver likely hepatic cyst and is too small to characterize. Mild hepatic steatosis suggested. The adrenal glands, pancreas and spleen appear within limits. Prominent appearing gallbladder without stones, pericholecystic free fluid or adjacent stranding identified. The right kidney appears within limits. 4.8 cm cystic focus interpolar to lower pole of the left kidney and is partially exophytic. Adjacent perinephric stranding, edema and thickening of the fascia with mild decrease subjacent nephrogram with possibility of infection or hemorrhage not entirely excluded, clinically correlate. A couple of tiny cortical renal cysts. Aortoiliac atherosclerotic changes without aneurysm. No bowel dilation or free air. A couple scattered noninflamed colonic diverticula. The appendix is not identified, no secondary signs. Appearance of mild diffusely prominent/thickened bladder wall. May represent cystitis, nonspecific.. No free fluid. Multilevel spondylosis/discogenic change. CT/Abdomen/Pelvis W IV Cont ONLY IMPRESSION: 4.8 cm cystic focus interpolar to lower pole of the left kidney and is partially exophytic. Adjacent perinephric stranding, edema and thickening of the fascia with mild decrease subjacent nephrogram with possibility of infection or hemorrhage not entirely excluded, clinically correlate. Appearance of mild diffusely prominent/thickened bladder wall. May represent cystitis, nonspecific.. Reading Location: [facility] CC: Dr. Elle Beckett, DO; Dr. Cedrick Vazquez DO ~ Maintenance Repairer: Signed Assessment & Plan Assessment/Plan (1) Sepsis: QUALIFIERS: Sepsis acute organ dysfunction status: with acute organ dysfunction Sepsis type: sepsis due to unspecified organism Severe sepsis acute organ dysfunction type: encephalopathy Severe sepsis shock status: without septic shock Qualified Code(s): A41.9 - Sepsis, unspecified organism; R65.20 - Severe sepsis without septic shock; G93.41 - Metabolic encephalopathy (2) Acute cystitis with hematuria: (3) Infected kidney cyst: (4) Leukocytosis: QUALIFIERS: Leukocytosis type: unspecified Qualified Code(s): D 72.829 - Elevated white blood cell count, unspecified (5) Lactic acidosis: (6) Aspiration pneumonia: QUALIFIERS: Aspiration pneumonia type: due to vomit Laterality: u nspecified laterality Lung location: unspecified part of lung Qualified Code(s): J69.0 - Pneumonitis due to inhalation of food and vomit (7) Acute respiratory alkalosis: (8) Hypokalemia: (9) Elevated troponin: (10) Acute metabolic encephalopathy: (11) Obesity (BMI 30-39.9): PLAN: Plan 1. UA grossly positive for Acute Cystitis; with microscopic hematuria with Fever of 102.4 degrees Fahrenheit present on admission along with corresponding Leukocytosis of 17.7 K with Left-shift of 1.1% and Lactic Acidosis of 2.7 mmol/L present on admission consistent with suspected Sepsis in the setting of known listed allergy to ampicillin (?) with CT this admission positive for evidence of ~4.8 cm cystic focus interpolar to lower pole of the Left kidney and is partially exophytic with adjacent perinephric stranding, edema and thickening of the fascia with mild decrease of adjacent nephrogram with possibility of infection or hemorrhage not entirely excluded with CT ordered at tail end of ER admission and hospitalist request - Admit to ICU for treatment under the Sepsis protocol. Continue empiric IV ceftriaxone begun in ER and await culture and sensitivity data. Serialize lactates to follow trend. Give acetaminophen as needed for pain or fever. Give ondansetron IV as needed nausea and vomiting. Start pantoprazole IV for GI prophylaxis given her acute severe illness. Finally, I spoke with the urologist on-call and reviewed the radiology results with recommendation to place catheter in the bladder and continue to treat with IV antibiotics and monitor for improvement. Patient may require CT-guided drainage if her condition fails to improve with conservative therapy which may require transfer. 2. Acute Respiratory Alkalosis with Hypoxia with VBG indicating pH 7.59/VBG PaO2 56 mmHg/VBG HCO3 29 mmol/L saturating 93% on 2L NC due to suspected Aspiration Pneumonia in the setting of recent Nausea and Vomiting with AMS complicating #1 - Check STAT ABG and give supplemental oxygen. Start empiric IV metronidazole to cover anaerobes. Placed on aspiration precautions. 3. Severe Hypokalemia of 2.6 mmol/L present on admission compounding #1 & #2 - Give supplemental KCl and then recheck level in a.m. to ensure improvement. 4. Elevated troponin T of 62 ng/L present on admission suspected to be due to Acute Cardiac Strain likely due to #1 - #3 - Serialize troponin. Continue BASA and statin as before plus add full-dose Lovenox in case numbers trend upward. Check echocardiogram to evaluate LVEF. 5. Acute Metabolic Encephalopathy attributable to #1 - #4 - Check TSH, B12, Folate, UDS and RADHA to evaluate for potentially reversible causes of confusion. Minimize [employer]PL[employer]IVE [employer] TECHNICIAN-active medications. Otherwise, continue care plan as outlined above and below monitor for improvement. 6. Obesity; with BMI of 35.5 this admission on semaglutide sq q. Sunday adding to the burden of disease outlined from #1 - #5 -Weight loss will be recommended. Check TSH. This complicates her case and may hamper recovery. 7. Essential Hypertension; on metoprolol, lisinopril, hydralazine and hydrochlorothiazide - Hold scheduled antihypertensives until infections outlined in #1 & #2 have been neutralized. Give hydralazine IV as needed for systolic blood pressure greater than 160 mmHg. 8. Hyperlipidemia; on ezetimibe and simvastatin - Maintain these agents as before and check Lipid Profile in light of #4. 9. Hypothyroidism; on levothyroxine - Continue levothyroxine and check TSH. 10. DM-2; of unknown control on metformin and glimepiride - Hold metformin and glimepiride while admitted. Keep NPO for now and check FSBS q. 6 hours. Check HgbA1c to objectively assess quality of diabetic control. 11. History of depression; on citalopram- Maintain current therapy. 12. History of appendectomy - Noted. 13. History of fall at [employer]; with subsequent Right rib cage fracture (03/2024) - Noted for the sake of completeness. 14. OA; with bilateral TKR's - Give acetaminophen prn as per pain scale noted in #1. 15. DVT/GI prophylaxis - Patient started on full-dose Lovenox for #4. Pantoprazole 40 mg IV daily. Total time: Approximately (but not less than) 75 minutes. Sepsis Attestation Sepsis Alert: Yes Sepsis Attestation: Agree w/Sepsis Date exam was performed: 01/23/25 Time exam was performed: 20:00 Possible Source of Sepsis: Genitourinary Sepsis Organ Dysfunction Criteria Present: Lactic Acid > 2 mmol/L and New/Unexplained change in mental status Supportive Findings: In the ER she was noted to have a UA grossly positive for Acute Cystitis; with microscopic hematuria with Fever of 102.4 degrees Fahrenheit present on admission along with corresponding Leukocytosis of 17.7 K with Left-shift of 1.1% and Lactic Acidosis of 2.7 mmol/L present on admission consistent with suspected Sepsis with CT of abdomen revealing ~4.8 cm cystic focus interpolar to lower pole of the Left kidney and is partially exophytic with adjacent perinephric stranding, edema and thickening of the fascia with mild decrease of adjacent nephrogram with possibility of infection or hemorrhage not entirely excluded complicated by Acute Respiratory Alkalosis with Hypoxia with VBG indicating pH 7.59/VBG PaO2 56 mmHg/VBG HCO3 29 mmol/L saturating 93% on 2L NC due to suspected Aspiration Pneumonia compounded by severe Hypokalemia of 2.6 mmol/L present on admission with incidentally noted elevated troponin T of 62 ng/L present on admission suspected to be due to Acute Cardiac Strain all combining to cause clinical evidence of Acute Metabolic Encephalopathy. Fluid Resuscitation Fluid resuscitation indicated?: Yes Fluid Resuscitation ordered: 30 ml/kg fluid bolus ordered Amount of fluid ordered: 2 Sepsis Note Date exam was performed: 01/24/25 Time exam was performed: 02:00 Sepsis Attestation: Sepsis re-evaluation was performed Response to fluids: Fluid responsive hypotension Charges/Coding Visit Charges Inpatient E&M: 84544 Init Hosp L3
[2025-01-24] MEDS: Potassium Chloride 10mEq/100mL 10 MEQ/100 ML IV.SOLN. 100 MEQ IV BOLUS (01:43)
[2025-01-24 02:17] LABS: Allen Test Positive; Base Excess 3 mmol/L (-2 to +2); Bicarbonate 27.7 mmol/L (22-26); Blood Gas Specimen Type ART; Mode Not entered; O2 Delivery Device Cannula; PO2 87 mmHG (75-100); SITE L Radial; SO2 97 % (95-99); Total Carbon Dioxide 29 mmol/L; pCO2 42.4 mmHg (35-45); pH 7.42 (7.35-7.45)
[2025-01-24] MEDS: Pantoprazole Sodium 40 MG in 0.9% Normal Saline (100mL MB+) 100 ML 330 MG IV ×2 (02:22→22:06)
[2025-01-24] MEDS: Enoxaparin 80 MG/0.8 ML Syringe SC (02:23)
[2025-01-24] MEDS: metroNIDAZOLE 500 MG/100 ML BAG 100 MG IV ×3 (02:25→21:19)
[2025-01-24] MEDS: 0.9% Saline Lock 10 ML Syringe IV ×3 (02:47→10:18)
[2025-01-24 03:13] LABS: Hemoglobin A1c 8.9 % (<=5.6)
[2025-01-24 03:14] LABS: Alcohol, Blood (Medical)-Serum < 10.1 mg/dL (<=10.0)
[2025-01-24 03:24] LABS: Amphetamine Urine NEGATIVE (<1000 ng/mL); Barbiturate Urine NEGATIVE (< 200 ng/mL); Benzodiazepine Urine NEGATIVE (< 200 ng/mL); Buprenorphine Urine NEGATIVE (< 200 ng/mL); Cocaine Urine NEGATIVE (< 300 ng/mL); Fentanyl, Urine NEGATIVE; Methadone Urine NEGATIVE (< 300 ng/mL); Opiates Urine NEGATIVE (< 300 ng/mL); Oxycodone, Urine NEGATIVE (< 100 ng/mL); PCP Urine NEGATIVE (< 25 ng/mL); THC Urine NEGATIVE (< 50 ng/mL)
[2025-01-24 03:30] LABS: Vitamin B12 678 pg/mL (180-914)
[2025-01-24 03:35] LABS: Lactic Acid < 1.0 mmol/L (0.0-2.0)
[2025-01-24 03:50] LABS: Troponin T High Sensitivity 48 ng/L (<=14)
[2025-01-24] MEDS: Levothyroxine 112 MCG Tablet PO (05:35)
[2025-01-24 06:24] LABS: Troponin T High Sens 2 HR 53 ng/L (<=14)
--- NOTE | 2025-01-24 07:24 | PCM.PN.HOSP ---
Reason for Visit Reason for Visit: Diagnoses Sepsis, unspecified organism (01/24/25) Elevated white blood cell count, unspecified (01/24/25) Obesity, unspecified (01/24/25) Acidosis, unspecified (01/24/25) Alkalosis (01/24/25) Hypokalemia (01/24/25) Metabolic encephalopathy (01/24/25) Pneumonitis due to inhalation of food and vomit (01/24/25) Cyst of kidney, acquired (01/24/25) Acute cystitis with hematuria (01/24/25) Severe sepsis without septic shock (01/24/25) Other specified abnormal findings of blood chemistry (01/24/25) Subjective Subjective Patient sitting up in chair, reports she is already beginning to feel better, GI upset starting to improve, awake and alert and answering questions appropriately Objective Data Objective Data Vital Signs: Vital Signs Temp Pulse Resp BP Pulse Ox O2 Del Method O2 Flow Rate 99 F 77 23 H 156/78 H 96 Nasal Cannula 3 01/24/25 06:00 01/24/25 06:00 01/24/25 06:00 01/24/25 06:00 01/24/25 06:00 01/24/25 06:00 01/24/25 06:00 Oxygen Flow Rate (L/min) 3 Oxygen Delivery Method Nasal Cannula Weight: 87.4 kg Body Mass Index (BMI) 37.8 Intake & Output: Intake and Output for Last 24 Hours 01/22/25 01/23/25 01/24/25 23:59 23:59 23:59 Intake Total 2799.45 / 2799.45 410 / 410 Output Total 600 / 600 Balance 2799.45 / 2799.45 -190 / -190 Lab / Micro Data 01/23/25 20:11 01/24/25 05:34 Labs: Laboratory Results - last 24 hr 01/23/25 19:30: Urine Color Yellow, Urine Clarity Sl. Cloudy, Urine pH 6.0, Ur Specific [place] 1.015, Urine Protein 100 H, Urine Glucose (UA) 250 H, Urine Ketones 5 H, Urine Occult Blood 25 H, Urine Nitrite Positive H, Urine Bilirubin Negative, Urine Urobilinogen 1 H, Ur Leukocyte Esterase 100 H, Urine RBC 5-10 SEEN, Urine WBC 25-50 SEEN, Ur Squamous Epith Cells 0-5 SEEN, Urine Bacteria 2+, Urine Mucus 1+ 01/23/25 19:32: Lactic Acid 2.7 H* 01/23/25 20:11: WBC 17.7 H, RBC 4.87, Hgb 13.8, Hct 41.7, MCV 85.6, MCH 28.3, MCHC 33.1, RDW Std Deviation 40.6, RDW Coeff of Janna 13.0, Plt Count TNP, MPV 9.7, Immature Gran % (Auto) 1.100 H, Neut % (Auto) 89.8 H, Lymph % (Auto) 3.5 L, [place] % (Auto) 4.6, Eos % (Auto) 0.3, Baso % (Auto) 0.7, Absolute Neuts (auto) 15.9 H, Absolute Lymphs (auto) 0.62 L, Nucleated RBC % 0, Platelet Estimate MOD INC, Plt Morphology Comment CLUMPED, Polychromasia RARE, PT Cancelled, INR Cancelled, APTT Cancelled, Sodium 134, Potassium 2.6 L*, Chloride 94 L, Carbon Dioxide 24.5, Anion Gap 15, BUN 15, Creatinine 0.83, Estim Creat Clear Calc 51.46, Est GFR (MDRD) Non-Af 72, BUN/Creatinine Ratio 18.3, Glucose 293 H, Calcium 8.7, Total Bilirubin 0.53, AST 19, ALT 14, Alkaline Phosphatase 103, Troponin T High Sens 62 H*, Total Protein 6.4, Albumin 3.2 L, Globulin 3.3, Albumin/Globulin Ratio 1.0, TSH 2.040, Free T4 1.20, Free T3 pg/dL 2.2 01/23/25 21:18: PT 12.9, INR 1.0, APTT 22.7 L 01/23/25 22:20: Troponin T Hi Sens 2 Hr 59 H*, NT pro BNP II 888 01/24/25 02:41: Hemoglobin A1c 8.9, Lactic Acid < 1.0, Troponin T High Sens 48 H D, Vitamin B12 678, Serum Folate Cancelled, Ethyl Alcohol < 10.1 01/24/25 02:49: Urine Opiates Screen NEGATIVE, U Buprenorphine Qual NEGATIVE, Ur Oxycodone Screen NEGATIVE, Urine Methadone Screen NEGATIVE, Urine Fentanyl Screen NEGATIVE, Ur Barbiturates Screen NEGATIVE, Ur Phencyclidine Scrn NEGATIVE, Ur Amphetamines Screen NEGATIVE, U Benzodiazepines Scrn NEGATIVE, Urine Cocaine Screen NEGATIVE, U Cannabinoids Screen NEGATIVE 01/24/25 05:34: Troponin T Hi Sens 2 Hr 53 H Micro: Microbiology 01/23/25 19:26 Mucosa - Nose SARS-CoV-2, Influenza & RSV (PCR) - Final ABG Data ABG results: ABG 01/23/25 01/24/25 19:43 02:13 Specimen Type PITER ART Sample Site Not entered L Radial pH 7.42 Bicarbonate Actual 27.7 H Total CO2 29 Base Excess 3 H O2 Saturation 97 O2 % 2.0 ABG pCO2 42.4 ABG pO2 87 Giovany Test Positive VBG pH 7.59 H VBG pO2 56 H VBG HCO3 29 H VBG Total CO2 30 VBG O2 Sat (Calc) 93 H VBG Base Excess 7 H POC Mix VBG pCO2 Pt Tmp 30.0 L O2 Delivery Device Cannula Cannula Vent Mode Not entered Radiography Diagnostic Testing: Radiology Impression Brain CT 01/23/25 19:13 IMPRESSION: No acute intracranial findings. Chronic microvascular ischemia and involutional changes. CLINICAL HISTORY: AMS Reading Location: [facility] Chest X-Ray 01/23/25 19:50 IMPRESSION: NEGATIVE CHEST Reading Location: [facility] Abdomen/Pelvis CT 01/24/25 00:34 IMPRESSION: 4.8 cm cystic focus interpolar to lower pole of the left kidney and is partially exophytic. Adjacent perinephric stranding, edema and thickening of the fascia with mild decrease subjacent nephrogram with possibility of infection or hemorrhage not entirely excluded, clinically correlate. Appearance of mild diffusely prominent/thickened bladder wall. May represent cystitis, nonspecific.. Reading Location: [id number] Chest CTA 01/24/25 00:34 IMPRESSION: No evidence of filling defect to suggest pulmonary embolism. Main pulmonary artery measures 3.5 cm can be seen with pulmonary artery hypertension, nonspecific. Three-vessel coronary calcification appears greatest at the proximal LAD. No pericardial or pleural effusion. The central airways appear patent. Peripheral area of subpleural scarring right middle lobe greater than lingula with subjacent areas of traction bronchiectasis. Bilateral dependent lower lobe atelectasis or possible scarring. Lungs otherwise appear clear. No focal consolidation. One or more dose reduction techniques were used (e.g., Automated exposure control, adjustment of the mA and/or kV according to patient size, use of iterative reconstruction technique). Reading Location: [facility] Physical Exam Narrative General: Alert, oriented, no apparent distress HEENT: Atraumatic, normocephalic Eyes: Anicteric, normal conjunctiva, extraocular movements grossly intact Neck: Supple Respiratory: Clear to auscultation bilaterally, normal respiratory effort Cardiovascular: Regular rate GI: Soft, nontender, nondistended Extremities: No edema Musculoskeletal: Moving all extremities Neuro: No overt focal neurological deficits Skin: No rashes appreciated Psych: Cooperative Assessment & Plan Assessment/Plan (1) Urinary tract infection: (2) Sepsis: QUALIFIERS: Sepsis acute organ dysfunction status: with acute organ dysfunction Sepsis type: sepsis due to unspecified organism Severe sepsis acute organ dysfunction type: encephalopathy Severe sepsis shock status: without septic shock Qualified Code(s): A41.9 - Sepsis, unspecified organism; R65.20 - Severe sepsis without septic shock; G93.41 - Metabolic encephalopathy PLAN: Plan # Sepsis secondary to urinary tract infection?urine and blood cultures gram-negative rods -Patient with metabolic encephalopathy, fever 102.4, lactic acid of 2.7, leukocytosis of 17.7 with left shift and elevated troponin of 62, with heart rate 115 and patient tachypneic with respiratory rate in the 30s on arrival, also hypoxic at 84% on room air with no history of home O2 -UA appeared infectious-growing gram-negative rods -Kimbrough cultures-growing gram-negative rods -CT chest/abdomen/pelvis obtained and left kidney with a 4.8 cm cystic focus interpolar to lower pole that is partially exophytic with adjacent perinephric stranding, edema, and thickening of fascia with mild decrease subadjacent nephrogram with possibility of infection or hemorrhage not entirely excluded -Dr. Smith with urology contacted and recommended Pak placement and antibiotics, formal consult placed -May need aspiration when IR available on Sunday, appreciate urology recommendations -Patient improving on Rocephin and Flagyl # Metabolic encephalopathy secondary to sepsis with urinary tract infection -CT head negative -Patient confused on admission, suspect this is secondary to patient's infection/sepsis, treat underlying etiology # Hypoxia -Suspect this may have been associated with sepsis as patient was 84% on room air but significantly improved with treatment of underlying infection, wean O2 -CTA with no PE or other acute abnormalities # Elevated troponin -Suspect secondary to acute illness with sepsis -Initial troponin 62 and subsequently down trended -Suspect this is all secondary to the acute illness and not a primary cardiac complaint given patient did not develop chest pain and troponins down trended, will change Lovenox to DVT prophylaxis and continue aspirin and Zetia #Hypertension -Patient hypertensive, if remains stable will need to add back blood pressure medications #Hypokalemia -Replaced -Repeat in the AM #Type 2 diabetes mellitus -Glucose checks and sliding scale insulin #Hypothyroidism -Continue Synthroid #Depression/anxiety -Continue home medications #DVT ppx: Lovenox subcu Helena Bates MD Charges/Coding Visit Charges Inpatient E&M: 11547 Subs Hosp L2
[2025-01-24 07:28] LABS: Cholesterol 82 mg/dL (<=200); High Density Lipoprotein 16 mg/dL; Low Density Lipoprotein Calc. 43 mg/dL; Triglycerides 113 mg/dL; Very Low Density Lipoprotein 23 mg/dL (5-40); cholesterol:hdl ratio screen 5.16
--- NOTE | 2025-01-24 09:33 | CASEMGMT ---
TARA DUBON Assessment: Face to Face with pt for initial transition planning/care coordination assessment. TARA DUBON introduced self and role at [facility], pt voices understanding and consents to assessment. Pt is A&O x4 and answers all questions appropriately at this time. Pt sitting up in chair in no distress. Care providers, pharmacy, and demographics verified/updated. Strata: 1 Admitting Dx: UTI with sepsis, aspiration pneumonia, hypokalemia PCP: Sujit Specialists: Denies Preferred Pharmacy: [facility] Insurance: [facility] Prescription Benefit: yes LNOK: Son, Wolf; Sister, Alba Living Arrangements: Pt lives with son in a 2 story home with 1 step to enter. ADLs: Pt I with ADLs and IADLs Transportation: Pt drives self and denies concerns with transportation. DME: [facility], but does not use it. HHC/SNF: Denies Hx of. Pt states no concerns with going home at time of dc. TARA DUBON discussed possible O2 needs at time of DC, provided a verbal list of DME providers in the area. Pt preference is [facility] if she requires O2 at time of DC. Pt states no further concerns/needs. CM to follow. Advised pt to ask CM if any further question/concerns/needs arise, voices understanding. Pt Goal: Home Plan: Home, follow for O2. Chuck PACHECO CM
[2025-01-24 09:37] LABS: Anion Gap 13 (5-15); BUN 11 mg/dL (4-19); BUN/Creat Ratio 14.1 RATIO (10-20); Chloride 102 mmol/L (98-108); EST Glomerular Filtration Rate 74 (>60); Estimated Creatinine Clearance 55.13 ml/min (50-250); Glucose 183 mg/dL (70-99); Potassium 4.2 mmol/L (3.3-5.1); Sodium Level 140 mmol/L (133-145)
--- NOTE | 2025-01-24 10:13 | CASEMGMT ---
According to [employer] choice PPO website, the following tertiary facilities are in network: [facility]/, [facility], [facility], [facility], [facility], .
[2025-01-24] MEDS: Aspirin E.C. 81 MG Tablet PO (10:18)
[2025-01-24] MEDS: Ezetimibe 10 MG Tablet PO (10:19)
[2025-01-24] MEDS: Citalopram 10 MG Tablet PO (10:19)
[2025-01-24] MEDS: Loperamide 2 MG Capsule PO (15:14)
[2025-01-24] MEDS: Ceftriaxone 1 GM/50 ML BAG IV (21:19)
[2025-01-24] MEDS: hydrALAZINE 20 MG/ML Vial 10 MG IV (22:06)
[2025-01-25] VITALS (12 sets, daily range): BP systolic 148–176; BP diastolic 56–85; PULSE 71–93; RESP 16–18; TEMP 36.4–37.3; O2SAT 93–98; BMI 38.3
[2025-01-25] MEDS: Metoprolol Tartrate 5 MG/5 ML Vial 2.5 MG IV (03:38)
[2025-01-25 04:20] LABS: Absolute Neutrophil Count 7.3 X10^3/uL (2.0-7.7); Basophil# 0.05 X10^3/uL; Basophil% 0.5 % (0-1); Eosinophil# 0.15 X10^3/uL; Eosinophils% 1.6 % (0-5); Hematocrit 36.1 % (37-47); Hemoglobin 12.5 g/dL (12.0-15.0); Lymphocyte % 12.5 % (19-41); Mean Corp Hgb Conc 34.6 g/dL (32-36); Mean Corpuscular Hgb 29.3 pg (27.0-32.0); Mean Corpuscular Volume 84.7 fL (81-99); Mean Platelet Vol. 9.2 fl (6.2-12.0); Monocyte# 0.76 X10^3/uL; Monocyte% 7.9 % (0-10); NRBC Flagged by Analyzer 0 % (0-5); Neutrophil # 7.34 X10^3/uL (2.7-7.7); Neutrophil % 76.6 % (47-70); Platelet Count 390 K/mm3 (150-450); RBC Distribution Width CV 13.3 % (11.6-14.6); RBC Distribution Width SD 41.2 fl (35.1-43.9); Red Blood Count 4.26 M/mm3 (4.2-5.4); White Blood Count 9.6 K/mm3 (4.4-11.0)
[2025-01-25 04:44] LABS: Anion Gap 13 (5-15); BUN 9 mg/dL (4-19); BUN/Creat Ratio 14.4 RATIO (10-20); Calcium,Total 8.7 mg/dL (7.6-11.0); Carbon Dioxide 24.8 mmol/L (21.0-32.0); Chloride 98 mmol/L (98-108); Creatinine, Serum 0.65 mg/dL (0.70-1.20); EST Glomerular Filtration Rate 89 (>60); Estimated Creatinine Clearance 55.56 ml/min (50-250); Glucose 262 mg/dL (70-99); Potassium 3.2 mmol/L (3.3-5.1); Sodium Level 136 mmol/L (133-145)
[2025-01-25] MEDS: metroNIDAZOLE 500 MG/100 ML BAG 100 MG IV (05:53)
[2025-01-25] MEDS: Levothyroxine 112 MCG Tablet PO (05:53)
[2025-01-25] MEDS: Aspirin E.C. 81 MG Tablet PO (08:41)
--- NOTE | 2025-01-25 08:41 | PN.HOSP_ITS ---
Reason for Visit Reason for Visit: Diagnoses Sepsis, unspecified organism (01/24/25) Elevated white blood cell count, unspecified (01/24/25) Obesity, unspecified (01/24/25) Acidosis, unspecified (01/24/25) Alkalosis (01/24/25) Hypokalemia (01/24/25) Metabolic encephalopathy (01/24/25) Pneumonitis due to inhalation of food and vomit (01/24/25) Cyst of kidney, acquired (01/24/25) Acute cystitis with hematuria (01/24/25) Urinary tract infection, site not specified (01/24/25) Severe sepsis without septic shock (01/24/25) Other specified abnormal findings of blood chemistry (01/24/25) Subjective Subjective Patient continues to improve, still some GI upset which she says waxes and wanes, there is a chronic component but she does report it is worse than usual, also reports poor p.o. intake, again component of this is chronic and was nauseous earlier today but does report she often gets nauseous in the morning Objective Data Objective Data Vital Signs: Vital Signs Temp Pulse Resp BP Pulse Ox O2 Del Method O2 Flow Rate 97.5 F L 89 17 176/77 H 93 Room Air 3 01/25/25 08:37 01/25/25 08:37 01/25/25 08:37 01/25/25 08:37 01/25/25 08:37 01/25/25 08:37 01/25/25 07:12 Oxygen Flow Rate (L/min) 3 Oxygen Delivery Method Room Air Weight: 88.632 kg Body Mass Index (BMI) 38.3 Intake & Output: Intake and Output for Last 24 Hours 01/23/25 01/24/25 01/25/25 23:59 23:59 23:59 Intake Total 2799.45 / 2799.45 1370 / 1370 100 / 100 Output Total 1050 / 1050 400 / 400 Balance 2799.45 / 2499.45 320 / 320 -300 / -300 Lab / Micro Data 01/25/25 03:56 01/25/25 03:56 Labs: Laboratory Results - last 24 hr 01/24/25 05:34: Sodium 140, Potassium 4.2, Chloride 102, Carbon Dioxide 25.0, Anion Gap 13, BUN 11, Creatinine 0.80, Estim Creat Clear Calc 55.13, Est GFR (MDRD) Non-Af 74, BUN/Creatinine Ratio 14.1, Glucose 183 H, Calcium 8.0, Serum Folate 19.60 01/25/25 03:56: WBC 9.6, RBC 4.26, Hgb 12.5, Hct 36.1 L, MCV 84.7, MCH 29.3, MCHC 34.6, RDW Std Deviation 41.2, RDW Coeff of Janna 13.3, Plt Count 390, MPV 9.2, Immature Gran % (Auto) 0.900, Neut % (Auto) 76.6 H, Lymph % (Auto) 12.5 L, [place] % (Auto) 7.9, Eos % (Auto) 1.6, Baso % (Auto) 0.5, Absolute Neuts (auto) 7.3, Absolute Lymphs (auto) 1.20, Nucleated RBC % 0, Sodium 136, Potassium 3.2 L , Chloride 98, Carbon Dioxide 24.8, Anion Gap 13, BUN 9, Creatinine 0.65 L, Estim Creat Clear Calc 55.56, Est GFR (MDRD) Non-Af 89, BUN/Creatinine Ratio 14.4, Glucose 262 H, Calcium 8.7 Micro: Microbiology 01/23/25 19:30 Urine, Clean Catch Urine Culture - Final Klebsiella pneumoniae sp pneum 01/23/25 20:11 Blood Culture (Wb) - Left Hand Blood Culture - Preliminary GNR lactose enrollment manager 01/23/25 19:32 Blood Culture (Wb) - Left Hand Blood Culture - Preliminary GNR lactose enrollment manager 01/24/25 02:49 Urine Catheter - Pak Legionella Antigen - Final 01/24/25 02:49 Urine Catheter - Pak Streptococcus pneumoniae Antigen (M - Final 01/24/25 04:35 Mucosa - Nasopharyngeal Respiratory Panel (PCR) - Final 01/23/25 19:26 Mucosa - Nose SARS-CoV-2, Influenza & RSV (PCR) - Final Physical Exam Narrative General: Alert, oriented, no apparent distress HEENT: Atraumatic, normocephalic Eyes: Anicteric, normal conjunctiva, extraocular movements grossly intact Neck: Supple Respiratory: Clear to auscultation bilaterally, normal respiratory effort Cardiovascular: Regular rate GI: Soft, nontender, nondistended Extremities: No edema Musculoskeletal: Moving all extremities Neuro: No overt focal neurological deficits Skin: No rashes appreciated Psych: Cooperative Assessment & Plan Assessment/Plan (1) Urinary tract infection: (2) Sepsis: QUALIFIERS: Sepsis acute organ dysfunction status: with acute organ dysfunction Sepsis type: sepsis due to unspecified organism Severe sepsis acute organ dysfunction type: encephalopathy Severe sepsis shock status: without septic shock Qualified Code(s): A41.9 - Sepsis, unspecified organism; R65.20 - Severe sepsis without septic shock; G93.41 - Metabolic encephalopathy PLAN: Plan # Sepsis secondary to urinary tract infection?urine and blood cultures gram- negative rods -Patient with metabolic encephalopathy, fever 102.4, lactic acid of 2.7, leukocytosis of 17.7 with left shift and elevated troponin of 62, with heart rate 115 and patient tachypneic with respiratory rate in the 30s on arrival, also hypoxic at 84% on room air with no history of home O2 -UA appeared infectious-growing gram-negative rods -Kimbrough cultures-growing gram-negative rods -CT chest/abdomen/pelvis obtained and left kidney with a 4.8 cm cystic focus interpolar to lower pole that is partially exophytic with adjacent perinephric stranding, edema, and thickening of fascia with mild decrease subadjacent nephrogram with possibility of infection or hemorrhage not entirely excluded -Dr. Smith with urology contacted and recommended Pak placement and antibiotics, formal consult placed -May need aspiration when IR available on Sunday, appreciate urology recommendations -Patient improving on Rocephin and Flagyl -01/25: Urine culture growing Klebsiella, blood cultures gram-negative declan lactose enrollment manager but have yet to speciate with sensitivities, suspect this will be the same but still awaiting final result. Given sensitivity to Rocephin we will stop Flagyl at this time. Patient drastically improved, no acute urological intervention or evaluation necessary at this time. It was recommended that patient have repeat CT scan with contrast in 3 to 6 months and if the lesion is stable no further workup necessary. Given patient has improved there is no acute intervention required and no need for transfer. Will plan to remove Pak to verify patient able to urinate prior to DC # Diarrhea -01/25: Patient initially reported chronic component but today reports this is worse than usual and has been more frequent and more in quantity, will check stool studies given she has been on antibiotics, if negative continue supportive care # Metabolic encephalopathy secondary to sepsis with urinary tract infection -CT head negative -Patient confused on admission, suspect this is secondary to patient's infection/sepsis, treat underlying etiology -01/25: Resolved, continue supportive care and antibiotics # Hypoxia -Suspect this may have been associated with sepsis as patient was 84% on room air but significantly improved with treatment of underlying infection, wean O2 -CTA with no PE or other acute abnormalities -01/25: Patient now 93% on room air, respiratory status stable, suspect this was secondary to acute illness, no further plans for additional workup at this time #Hypertension -Patient hypertensive, if remains stable will need to add back blood pressure medications -01/25: Hypertensive, will begin to add back patient's home medications, appears on her med list she takes hydralazine 50 daily however this is usually a 3 times daily to 4 times daily medication, will change to 25 mg 3 times daily, also restart metoprolol, on her med list there is metoprolol tartrate but only once daily, switch this to 50 twice daily #Hypokalemia -Replaced -Repeat in the AM -01/25: Further replacement, repeat tomorrow, if necessary can consider scheduling especially once patient's hydrochlorothiazide resumes Chronic medical problems, medical problems not actively being addressed at this encounter: # Elevated troponin -Suspect secondary to acute illness with sepsis -Initial troponin 62 and subsequently down trended -Suspect this is all secondary to the acute illness and not a primary cardiac complaint given patient did not develop chest pain and troponins down trended, will change Lovenox to DVT prophylaxis and continue aspirin and Zetia #Type 2 diabetes mellitus -Glucose checks and sliding scale insulin #Hypothyroidism -Continue Synthroid #Depression/anxiety -Continue home medications #DVT ppx: Lovenox subcu Helena Bates MD Time spent in the patient's overall evaluation,decision-making process, review of diagnostic data, adjustment of management, discussion with other providers, nursing nursing and ancillary staff involved in patient's care documentation, 37 Minutes Charges/Coding Visit Charges Inpatient E&M: 50218 Subs Hosp L2
[2025-01-25] MEDS: Potassium Chloride Oral Tablet 20 MEQ 60 MEQ PO (09:43)
[2025-01-25] MEDS: hydrALAZINE 25 MG Tablet PO ×3 (09:43→21:36)
[2025-01-25] MEDS: Metoprolol Tartrate 50 MG Tablet PO ×2 (09:44→21:37)
[2025-01-25] MEDS: Atorvastatin Calcium 40 MG Tablet PO (09:44)
[2025-01-25] MEDS: Citalopram 10 MG Tablet PO (09:45)
[2025-01-25] MEDS: Ezetimibe 10 MG Tablet PO (09:45)
[2025-01-25] MEDS: Enoxaparin 40 MG/0.4 ML Syringe SC (09:45)
[2025-01-25] MEDS: Insulin Lispro 100 UNIT/ML INSULN.PEN SC ×3 (11:29→21:37)
[2025-01-25 11:40] LABS: Bedside Glucose 331 mg/dL (74-106)
[2025-01-25 17:26] LABS: Bedside Glucose 231 mg/dL (74-106)
[2025-01-25] MEDS: Ceftriaxone 1 GM/50 ML BAG IV (21:38)
[2025-01-25] MEDS: Pantoprazole Sodium 40 MG in 0.9% Normal Saline (100mL MB+) 100 ML 330 MG IV (21:38)
[2025-01-25 22:09] LABS: Bedside Glucose 279 mg/dL (74-106)
[2025-01-26] VITALS (9 sets, daily range): BP systolic 147–157; BP diastolic 59–85; PULSE 71–81; RESP 16–20; TEMP 36.4–38.2; O2SAT 94–97; BMI 37.8
[2025-01-26] MEDS: Acetaminophen 500 MG Tablet 1000 MG PO (04:15)
[2025-01-26 06:09] LABS: Absolute Lymphocyte Count 1.57 X10^3/uL (0.83-4.51); Absolute Neutrophil Count 7.3 X10^3/uL (2.0-7.7); Basophil# 0.03 X10^3/uL; Basophil% 0.3 % (0-1); Eosinophil# 0.14 X10^3/uL; Eosinophils% 1.4 % (0-5); Hematocrit 35.3 % (37-47); Hemoglobin 11.8 g/dL (12.0-15.0); Lymphocyte # 1.57 X10^3/ul (0.83-4.51); Lymphocyte % 15.6 % (19-41); Mean Corp Hgb Conc 33.4 g/dL (32-36); Mean Corpuscular Hgb 28.3 pg (27.0-32.0); Mean Corpuscular Volume 84.7 fL (81-99); Mean Platelet Vol. 9.1 fl (6.2-12.0); Monocyte# 0.94 X10^3/uL; Monocyte% 9.4 % (0-10); NRBC Flagged by Analyzer 0 % (0-5); Neutrophil # 7.28 X10^3/uL (2.7-7.7); Neutrophil % 72.5 % (47-70); Platelet Count 420 K/mm3 (150-450); RBC Distribution Width CV 13.2 % (11.6-14.6); RBC Distribution Width SD 41.1 fl (35.1-43.9); Red Blood Count 4.17 M/mm3 (4.2-5.4)
[2025-01-26] MEDS: Insulin Lispro 100 UNIT/ML INSULN.PEN SC ×2 (06:14→11:05)
[2025-01-26] MEDS: Levothyroxine 112 MCG Tablet PO (06:14)
[2025-01-26] MEDS: hydrALAZINE 25 MG Tablet PO ×2 (06:14→13:12)
[2025-01-26 06:32] LABS: Anion Gap 13 (5-15); BUN 6 mg/dL (4-19); BUN/Creat Ratio 9.3 RATIO (10-20); Calcium,Total 8.6 mg/dL (7.6-11.0); Carbon Dioxide 25.4 mmol/L (21.0-32.0); Chloride 97 mmol/L (98-108); Creatinine, Serum 0.65 mg/dL (0.70-1.20); EST Glomerular Filtration Rate 89 (>60); Estimated Creatinine Clearance 55.09 ml/min (50-250); Glucose 202 mg/dL (70-99); Potassium 3.5 mmol/L (3.3-5.1); Sodium Level 136 mmol/L (133-145)
[2025-01-26 06:38] LABS: Bedside Glucose 214 mg/dL (74-106)
--- NOTE | 2025-01-26 07:37 | PN.HOSP_ITS ---
Reason for Visit Reason for Visit: Diagnoses Sepsis, unspecified organism (01/24/25) Elevated white blood cell count, unspecified (01/24/25) Obesity, unspecified (01/24/25) Acidosis, unspecified (01/24/25) Alkalosis (01/24/25) Hypokalemia (01/24/25) Metabolic encephalopathy (01/24/25) Pneumonitis due to inhalation of food and vomit (01/24/25) Cyst of kidney, acquired (01/24/25) Acute cystitis with hematuria (01/24/25) Urinary tract infection, site not specified (01/24/25) Severe sepsis without septic shock (01/24/25) Other specified abnormal findings of blood chemistry (01/24/25) Objective Data Objective Data Vital Signs: Vital Signs Temp Pulse Resp BP Pulse Ox O2 Del Method O2 Flow Rate 97.5 F L 81 16 157/82 H 94 Room Air 3 01/26/25 05:00 01/26/25 06:14 01/26/25 03:30 01/26/25 06:14 01/26/25 03:30 01/26/25 03:30 01/25/25 07:12 Oxygen Flow Rate (L/min) 3 Oxygen Delivery Method Room Air Weight: 192 lb 7.417 oz Body Mass Index (BMI) 37.8 Intake & Output: Intake and Output for Last 24 Hours 01/24/25 01/25/25 01/26/25 23:59 23:59 23:59 Intake Total 1370 / 1370 260 / 260 Output Total 1050 / 1050 400 / 900 1050 / 1050 Balance 320 / 320 -140 / -640 -1050 / -1050 Lab / Micro Data 01/26/25 05:24 01/26/25 05:24 Labs: Laboratory Results - last 24 hr 01/25/25 11:22: POC Glucose 331 H 01/25/25 16:59: POC Glucose 231 H 01/25/25 21:35: POC Glucose 279 H 01/26/25 05:24: WBC 10.0, RBC 4.17 L, Hgb 11.8 L, Hct 35.3 L, MCV 84.7, MCH 28.3, MCHC 33.4, RDW Std Deviation 41.1, RDW Coeff of Janna 13.2, Plt Count 420, MPV 9.1, Immature Gran % (Auto) 0.800, Neut % (Auto) 72.5 H, Lymph % (Auto) 15.6 L, [place] % (Auto) 9.4, Eos % (Auto) 1.4, Baso % (Auto) 0.3, Absolute Neuts (auto) 7.3, Absolute Lymphs (auto) 1.57, Nucleated RBC % 0, Sodium 136, Potassium 3.5, Chloride 97 L, Carbon Dioxide 25.4, Anion Gap 13, BUN 6, Creatinine 0.65 L, Estim Creat Clear Calc 55.09, Est GFR (MDRD) Non-Af 89, BUN/Creatinine Ratio 9.3 L, Glucose 202 H, Calcium 8.6 01/26/25 06:12: POC Glucose 214 H Micro: Microbiology 01/25/25 15:15 Stool Clostridioides difficile (PCR) - Final 01/23/25 20:11 Blood Culture (Wb) - Left Hand Blood Culture - Preliminary GNR lactose edge grinder machine 01/23/25 19:30 Urine, Clean Catch Urine Culture - Final Klebsiella pneumoniae sp pneum 01/23/25 19:32 Blood Culture (Wb) - Left Hand Blood Culture - Preliminary GNR lactose edge grinder machine 01/24/25 02:49 Urine Catheter - Pak Legionella Antigen - Final 01/24/25 02:49 Urine Catheter - Pak Streptococcus pneumoniae Antigen (M - Final 01/24/25 04:35 Mucosa - Nasopharyngeal Respiratory Panel (PCR) - Final 01/23/25 19:26 Mucosa - Nose SARS-CoV-2, Influenza & RSV (PCR) - Final Physical Exam Narrative Seen and examined. Tmax 100.8 Fahrenheit about 3:30 AM. Heart rate and blood pressure acceptable. Complain of chronic lower back pain. Did not had kidney or bladder issues in the past therefore has not seen a urologist before. She had Pak catheter removed yesterday Physical exam General: Alert, Oriented x3, Cooperative. BMI 37.8 kg/m?. Obesity grade 2 HEENT: Atraumatic, PERRLA, EOMI, Normocephalic Oral: No Gingival or Mucosal Lesions/ Ulcerations Neck: Supple, No JVD, Negative Carotid Bruits Chest wall/Lungs: Air entry diminished in bilateral lung bases. No crepitation/rhonchi Cardiovascular: Regular rate, Regular Rhythm, Normal S1, Normal S2, No M/G/R Abdomen: Bowel Sounds Present, Soft, Non Tender, Non-Distended : No dysuria. No renal angle tenderness. No suprapubic tenderness. Extremities: No edema, Capillary Refill Less than 3 Seconds Skin: No rashes, No breakdown Musculoskeletal: No Tenderness to Palpation of Joints or Extremities Spine: Mild bilateral paraspinal sacral muscles tenderness Neurological: Cranial nerves II-XII grossly intact, DTR 2+/4. No acute focal neurological deficit. Psych/Mental Status: flat affect Assessment & Plan Assessment/Plan (1) Urinary tract infection: (2) Sepsis: QUALIFIERS: Sepsis acute organ dysfunction status: with acute organ dysfunction Sepsis type: sepsis due to unspecified organism Severe sepsis acute organ dysfunction type: encephalopathy Severe sepsis shock status: without septic shock Qualified Code(s): A41.9 - Sepsis, unspecified organism; R65.20 - Severe sepsis without septic shock; G93.41 - Metabolic encephalopathy PLAN: Plan # Sepsis secondary to urinary tract infection?urine and blood cultures gram- negative rods -Patient with metabolic encephalopathy, fever 102.4, lactic acid of 2.7, leukocytosis of 17.7 with left shift and elevated troponin of 62, with heart rate 115 and patient tachypneic with respiratory rate in the 30s on arrival, also hypoxic at 84% on room air with no history of home O2 -UA appeared infectious-growing gram-negative rods -Kimbrough cultures-growing gram-negative rods -CT chest/abdomen/pelvis obtained and left kidney with a 4.8 cm cystic focus interpolar to lower pole that is partially exophytic with adjacent perinephric stranding, edema, and thickening of fascia with mild decrease subadjacent nephrogram with possibility of infection or hemorrhage not entirely excluded -Dr. Smith with urology contacted and recommended Pak placement and antibiotics, formal consult placed -May need aspiration when IR available on Sunday, appreciate urology recommendations -Patient improving on Rocephin and Flagyl -01/25: Urine culture growing Klebsiella, blood cultures gram-negative declan lactose edge grinder machine but have yet to speciate with sensitivities, suspect this will be the same but still awaiting final result. Given sensitivity to Rocephin we will stop Flagyl at this time. Patient drastically improved, no acute urological intervention or evaluation necessary at this time. It was recommended that patient have repeat CT scan with contrast in 3 to 6 months and if the lesion is stable no further workup necessary. Given patient has improved there is no acute intervention required and no need for transfer. Will plan to remove Pak to verify patient able to urinate prior to DC # Diarrhea -01/25: Patient initially reported chronic component but today reports this is worse than usual and has been more frequent and more in quantity, will check stool studies given she has been on antibiotics, if negative continue supportive care # Metabolic encephalopathy secondary to sepsis with urinary tract infection -CT head negative -Patient confused on admission, suspect this is secondary to patient's infection/sepsis, treat underlying etiology -01/25: Resolved, continue supportive care and antibiotics # Hypoxia -Suspect this may have been associated with sepsis as patient was 84% on room air but significantly improved with treatment of underlying infection, wean O2 -CTA with no PE or other acute abnormalities -01/25: Patient now 93% on room air, respiratory status stable, suspect this was secondary to acute illness, no further plans for additional workup at this time #Hypertension -Patient hypertensive, if remains stable will need to add back blood pressure medications -01/25: Hypertensive, will begin to add back patient's home medications, appears on her med list she takes hydralazine 50 daily however this is usually a 3 times daily to 4 times daily medication, will change to 25 mg 3 times daily, also restart metoprolol, on her med list there is metoprolol tartrate but only once daily, switch this to 50 twice daily #Hypokalemia -Replaced -Repeat in the AM -01/25: Further replacement, repeat tomorrow, if necessary can consider scheduling especially once patient's hydrochlorothiazide resumes Chronic medical problems, medical problems not actively being addressed at this encounter: # Elevated troponin -Suspect secondary to acute illness with sepsis -Initial troponin 62 and subsequently down trended -Suspect this is all secondary to the acute illness and not a primary cardiac complaint given patient did not develop chest pain and troponins down trended, will change Lovenox to DVT prophylaxis and continue aspirin and Zetia #Type 2 diabetes mellitus -Glucose checks and sliding scale insulin #Hypothyroidism -Continue Synthroid #Depression/anxiety -Continue home medications #DVT ppx: Lovenox subcu
[2025-01-26] MEDS: Metoprolol Tartrate 50 MG Tablet PO (09:34)
[2025-01-26] MEDS: Ezetimibe 10 MG Tablet PO (09:34)
[2025-01-26] MEDS: Citalopram 10 MG Tablet PO (09:34)
[2025-01-26] MEDS: Aspirin E.C. 81 MG Tablet PO (09:34)
[2025-01-26] MEDS: Atorvastatin Calcium 40 MG Tablet PO (09:34)
--- NOTE | 2025-01-26 10:02 | DCINST_ITS ---
Discharge Instructions Diet Discharge Diet: No restrictions DC O2, CPAP, BIPAP needs Home O2 Discharge instructions: No Dressing / Incision Discharge Activity: Return to Normal Activity Weight Bearing Status: Weight bearing as tolerated Dressing / Incision Call your doctor if you observe: Fever of 101 or Higher, Coldness, Increased Pain, Numbness or Tingling, Change in Color, Inability to urinate, Inability to have a bowel movement, Shortness of breath, Dizziness, Fainting spells, Swelling in the ankles, Chest pain, Prolonged hiccupping, Increased palpitations (irregular heartbeat) and Calf discomfort Follow Up Care When: IN 2 WEEKS Test Results: Test results from this visit will be discussed in further detail at your follow- up appointment, if applicable. Discharge Plan Admission Admit Date/Time: 01/24/25 01:05 Primary Reason for Your Visit: UTI/bacteremia, acute encephalopathy Attending Provider: Booker Avina Primary Care Provider: Elle Beckett Consulting Providers: Rene Huang; Osvaldo Luevano; Gerald Roberts; Mickey Garcia; Guille Herrmann; Rene Menon; Lucas Meza; Gilbert Burns; Екатерина Tadeo; Joel Reed; Carlos A York; Jake Medel; Angelique Pinzon; Antonio Ramirez; Merari Devries; Korey Jones; Gabriel Asher; Esvin Carrera; Alexander Chapman; Ovidio Roper; Atul Watters; Burt Ball; Evaristo Branham; Sandeep Amaro; Helena Bates; Viet Allred Discharge Orders/Prescriptions Prescriptions: New cephalexin 500 mg capsule 500 mg PO Q6H 7 Days Qty: 28 0RF Continued metformin 500 mg tablet extended release 24 hr 1,500 mg PO DAILY Patient Comments: TAKE 3 TABLETS BY MOUTH ONCE DAILY metoprolol tartrate 100 mg tablet 100 mg PO DAILY Patient Comments: TAKE 1 TABLET BY MOUTH TWICE DAILY simvastatin 80 mg tablet 80 mg PO DAILY Patient Comments: [NO ORIGINAL SIG] lisinopril 20 mg tablet 20 mg PO DAILY Patient Comments: [NO ORIGINAL SIG] hydrochlorothiazide 25 mg tablet 25 mg PO DAILY Patient Comments: TAKE 1 TABLET BY MOUTH ONCE DAILY ezetimibe 10 mg tablet 10 mg PO DAILY Patient Comments: TAKE 1 TABLET BY MOUTH ONCE DAILY levothyroxine 112 mcg tablet 112 mcg PO DAILY Patient Comments: TAKE 1 TABLET BY MOUTH IN THE MORNING ON AN EMPTY STOMACH glimepiride 4 mg tablet 8 mg PO DAILY Patient Comments: TAKE 1 TABLET BY MOUTH TWICE DAILY citalopram [Celexa] 10 mg tablet 10 mg PO DAILY hydralazine 50 mg tablet 50 mg PO DAILY Patient Comments: TAKE 1 TABLET BY MOUTH ONCE DAILY aspirin [Adult Low Dose Aspirin] 81 mg tablet,delayed release (DR/EC) 81 mg PO DAILY Ozempic 0.25 mg or 0.5 mg (2 mg/3 mL) pen injector 0.25 mg SUBCUT FR Patient Comments: [NO ORIGINAL SIG] hydrocodone-acetaminophen 5-325 mg tablet 1 tab PO Q6H PRN PRN (Reason: Pain) 4 Days Qty: 15 0RF Referrals / Follow Up: Rolanda Smith MD [Med Staff - Active Staff] - Within 1 Month Elle Beckett DO [Primary Care Provider] - Within 2 Weeks Booker Aivna MD [Med Staff - Active Staff] - Disposition Disposition (needs filled in before D/C Order can be placed): Home, Self Care
[2025-01-26] MEDS: Acetaminophen 325 MG Tablet 650 MG PO (11:08)
[2025-01-26] MEDS: 0.9% Saline Lock 10 ML Syringe IV (11:08)
[2025-01-26 11:24] LABS: Bedside Glucose 283 mg/dL (74-106)
--- NOTE | 2025-01-26 12:07 | PCM.DC.SUM ---
Providers Date of Admission: 01/24/25 Date of Discharge: 01/26/25 Primary Care Physician: Dr. Elle Beckett, Consultations 01/24/25 01:59 Consult: Mass Communications Instructor / Pulmonary Medicine Routine Consulting Provider: Intensivists/Pulmonary Med Reason for Consult: UTI with Sepsis, Respiratory Alkalosis, Hypokalemia and AMS. EMERGENT Consult: No Notified: Yes Date Notified: 01/24/25 Time Notified: 01:10 Method of Notification: Text 01/26/25 08:44 Consult: Infectious Disease Routine Consulting Provider: Viet Allred Reason for Consult: febrile on UTI with Kleb bacteremia EMERGENT Consult: No Notified: Yes Date Notified: 01/26/25 Time Notified: 08:44 Method of Notification: Verbal Reason For Visit: UTI WITH SEPSIS ASPIRATION PNEUMONIA HYPOKALEMIA Diagnosis Discharge Diagnosis (1) Urinary tract infection: Status: Acute Code(s): N39.0 - Urinary tract infection, site not specified (2) Sepsis: Status: Acute Code(s): A41.9 - Sepsis, unspecified organism Qualifiers: Sepsis type: sepsis due to unspecified organism Sepsis acute organ dysfunction status: with acute organ dysfunction Severe sepsis acute organ dysfunction type: encephalopathy Severe sepsis shock status: without septic shock Qualified Code(s): A41.9 - Sepsis, unspecified organism; R65.20 - Severe sepsis without septic shock; G93.41 - Metabolic encephalopathy Plan # Sepsis secondary to urinary tract infection?urine and blood cultures gram-negative rods -Patient with metabolic encephalopathy, fever 102.4, lactic acid of 2.7, leukocytosis of 17.7 with left shift and elevated troponin of 62, with heart rate 115 and patient tachypneic with respiratory rate in the 30s on arrival, also hypoxic at 84% on room air with no history of home O2 -UA appeared infectious-growing gram-negative rods -Kimbrough cultures-growing gram-negative rods -CT chest/abdomen/pelvis obtained and left kidney with a 4.8 cm cystic focus interpolar to lower pole that is partially exophytic with adjacent perinephric stranding, edema, and thickening of fascia with mild decrease subadjacent nephrogram with possibility of infection or hemorrhage not entirely excluded -Dr. Smith with urology contacted and recommended Pak placement and antibiotics, formal consult placed -01/25: Urine culture growing Klebsiella, blood cultures gram-negative declan lactose drying oven tender but have yet to speciate with sensitivities, suspect this will be the same but still awaiting final result. Given sensitivity to Rocephin we will stop Flagyl at this time. Patient drastically improved, no acute urological intervention or evaluation necessary at this time. It was recommended that patient have repeat CT scan with contrast in 3 to 6 months and if the lesion is stable no further workup necessary. Given patient has improved there is no acute intervention required and no need for transfer. Will plan to remove Pak to verify patient able to urinate prior to DC 01/26: ID was formally consulted and recommended Keflex 500 mg 4 times daily for 1 more week. Patient discharged with follow-up with Dr. Smith. # Diarrhea -01/25: Patient initially reported chronic component but today reports this is worse than usual and has been more frequent and more in quantity, will check stool studies given she has been on antibiotics, if negative continue supportive care 01/26: Diarrhea resolved. Enteric bacterial pathogen panel and C. difficile PCR are negative. Earlier patient had respiratory panel and urinary antigens negative. # Metabolic encephalopathy secondary to sepsis with urinary tract infection -CT head negative -Patient confused on admission, suspect this is secondary to patient's infection/sepsis, treat underlying etiology -01/25: Resolved, continue supportive care and antibiotics # Hypoxia -Suspect this may have been associated with sepsis as patient was 84% on room air but significantly improved with treatment of underlying infection, wean O2 -CTA with no PE or other acute abnormalities -01/25: Patient now 93% on room air, respiratory status stable, suspect this was secondary to acute illness, no further plans for additional workup at this time #Hypertension -Patient hypertensive, if remains stable will need to add back blood pressure medications -01/25: Hypertensive, will begin to add back patient's home medications, appears on her med list she takes hydralazine 50 daily however this is usually a 3 times daily to 4 times daily medication, will change to 25 mg 3 times daily, also restart metoprolol, on her med list there is metoprolol tartrate but only once daily, switch this to 50 twice daily #Hypokalemia -Replaced Resolved. Chronic medical problems, medical problems not actively being addressed at this encounter: # Elevated troponin -Suspect secondary to acute illness with sepsis -Initial troponin 62 and subsequently down trended -Suspect this is all secondary to the acute illness and not a primary cardiac complaint given patient did not develop chest pain and troponins down trended, will change Lovenox to DVT prophylaxis and continue aspirin and Zetia #Type 2 diabetes mellitus -Glucose checks and sliding scale insulin #Hypothyroidism -Continue Synthroid #Depression/anxiety -Continue home medications #DVT ppx: Lovenox subcu Discharge medication reconciliation done. Discharge follow-up instructions completed. Discharge process discussed with the patient and all questions were answered to patient's satisfaction. Follow with PCP in 1 to 2 weeks Total time spent, exact 35 minutes on discharge meds reconciliation, examination, coordination of care with nurses and ancillary staff, review of imaging and blood test and discussion with the patient on follow-up instructions. Medications at Discharge Home Medications aspirin 81 mg tablet,delayed release (Adult Low Dose Aspirin) 81 mg PO DAILY 04/01/24 citalopram 10 mg tablet (Celexa) 10 mg PO DAILY 04/01/24 ezetimibe 10 mg tablet 10 mg PO DAILY 04/01/24 glimepiride 4 mg tablet 8 mg PO DAILY 04/01/24 hydralazine 50 mg tablet 50 mg PO DAILY 04/01/24 hydrochlorothiazide 25 mg tablet 25 mg PO DAILY 04/01/24 hydrocodone-acetaminophen 5-325mg 5mg-325mg 1 tab PO Q6H PRN PRN Pain 4 days #15 TABLETS 04/01/24 levothyroxine 112 mcg tablet 112 mcg PO DAILY 04/01/24 lisinopril 20 mg tablet 20 mg PO DAILY 04/01/24 metformin 500 mg tablet,extended release 24 hr 1,500 mg PO DAILY 04/01/24 metoprolol tartrate 100 mg tablet 100 mg PO DAILY 04/01/24 semaglutide 0.25 mg or 0.5 mg (2 mg/3 mL) subcutaneous pen injector (Ozempic) 0.25 mg subcut FR 04/01/24 simvastatin 80 mg tablet 80 mg PO DAILY 04/01/24 cephalexin 500 mg capsule 500 mg PO Q6H 7 days #28 caps 01/26/25 Physical Exam Narrative Seen and examined. Tmax 100.8 Fahrenheit about 3:30 AM. Heart rate and blood pressure acceptable. Complain of chronic lower back pain. Did not had kidney or bladder issues in the past therefore has not seen a urologist before. She had Pak catheter removed yesterday Physical exam General: Alert, Oriented x3, Cooperative. BMI 37.8 kg/m?. Obesity grade 2 HEENT: Atraumatic, PERRLA, EOMI, Normocephalic Oral: No Gingival or Mucosal Lesions/ Ulcerations Neck: Supple, No JVD, Negative Carotid Bruits Chest wall/Lungs: Air entry diminished in bilateral lung bases. No crepitation/rhonchi Cardiovascular: Regular rate, Regular Rhythm, Normal S1, Normal S2, No M/G/R Abdomen: Bowel Sounds Present, Soft, Non Tender, Non-Distended : No dysuria. No renal angle tenderness. No suprapubic tenderness. Extremities: No edema, Capillary Refill Less than 3 Seconds Skin: No rashes, No breakdown Musculoskeletal: No Tenderness to Palpation of Joints or Extremities Spine: Mild bilateral paraspinal sacral muscles tenderness Neurological: Cranial nerves II-XII grossly intact, DTR 2+/4. No acute focal neurological deficit. Psych/Mental Status: flat affect Weight / BMI Weight Weight: 192 lb 7.417 oz Body Mass Index (BMI) 37.8 ABG / Lab / Microbiology Data 01/26/25 05:24 01/26/25 05:24 Laboratory: Laboratory Results - last 24 hr 01/25/25 16:59: POC Glucose 231 H 01/25/25 21:35: POC Glucose 279 H 01/26/25 05:24: WBC 10.0, RBC 4.17 L, Hgb 11.8 L, Hct 35.3 L, MCV 84.7, MCH 28.3, MCHC 33.4, RDW Std Deviation 41.1, RDW Coeff of Janna 13.2, Plt Count 420, MPV 9.1, Immature Gran % (Auto) 0.800, Neut % (Auto) 72.5 H, Lymph % (Auto) 15.6 L, [place] % (Auto) 9.4, Eos % (Auto) 1.4, Baso % (Auto) 0.3, Absolute Neuts (auto) 7.3, Absolute Lymphs (auto) 1.57, Nucleated RBC % 0, Sodium 136, Potassium 3.5, Chloride 97 L, Carbon Dioxide 25.4, Anion Gap 13, BUN 6, Creatinine 0.65 L, Estim Creat Clear Calc 55.09, Est GFR (MDRD) Non-Af 89, BUN/Creatinine Ratio 9.3 L, Glucose 202 H, Calcium 8.6 01/26/25 06:12: POC Glucose 214 H 01/26/25 11:03: POC Glucose 283 H Microbiology: Microbiology 01/25/25 16:00 Stool Enteric Bacteriology - Final 01/23/25 20:11 Blood Culture (Wb) - Left Hand Blood Culture - Final GNR lactose drying oven tender 01/23/25 19:32 Blood Culture (Wb) - Left Hand Blood Culture - Final Klebsiella pneumoniae sp pneum 01/25/25 15:15 Stool Clostridioides difficile (PCR) - Final 01/23/25 19:30 Urine, Clean Catch Urine Culture - Final Klebsiella pneumoniae sp pneum 01/24/25 02:49 Urine Catheter - Pak Legionella Antigen - Final 01/24/25 02:49 Urine Catheter - Pak Streptococcus pneumoniae Antigen (M - Final 01/24/25 04:35 Mucosa - Nasopharyngeal Respiratory Panel (PCR) - Final 01/23/25 19:26 Mucosa - Nose SARS-CoV-2, Influenza & RSV (PCR) - Final D/C Instructions Discharge Diet: No restrictions Weight Bearing Status: Weight bearing as tolerated Call your doctor if you observe: Fever of 101 or Higher, Coldness, Increased Pain, Numbness or Tingling, Change in Color, Inability to urinate, Inability to have a bowel movement, Shortness of breath, Dizziness, Fainting spells, Swelling in the ankles, Chest pain, Prolonged hiccupping, Increased palpitations (irregular heartbeat) and Calf discomfort DC O2, CPAP, BIPAP Needs Home O2 Discharge instructions: No When: IN 2 WEEKS Meaningful Use Info Meaningful Use Meaningful Use Diagnoses (Choose all that apply): None applicable Ischemic Stroke Statin Dosing Therapy Reference: STATIN DOSE THERAPY REFERENCE: * Patients > 75 years receive moderate or high dose statin therapy. * Patients 75 years or YOUNGER should receive HIGH intensity statin dose unless contraindicated. You will be required to document reason for non-treatment if statin daily dose does not meet guidelines. HIGH DOSE STATIN THERAPY DAILY Atorvastatin > than or = to 40 mg Rosuvastatin > than or = to 20 mg Amlodipine + Atorvastatin > than or = to 2.5/40 mg Ezetimibe + Simvastatin 10/80 mg Simvastatin 80mg Discharge Plan Admission Admit Date/Time: 01/24/25 01:05 Primary Reason for Your Visit: UTI/bacteremia, acute encephalopathy Attending Provider: Booker Avina Primary Care Provider: Elle Beckett Consulting Providers: Rene Huang; Osvaldo Luevano; Gerald Roberts; Mickey Garcia; Guilel Herrmann; Rene Menon; Lucas Meza; Gilbert Burns; Екатерина Tadeo; Joel Reed; Carlos A York; Jake Medel; Angelique Pinzon; Antonio Ramirez; Merari Devries; Robert,Korey; Gabriel Asher; Esvin Carrera; Alexander Chapman; Ovidio Roper; Atul Watters; Burt Ball; Evaristo Branham; Sandeep Amaro; Helena Bates; Viet Allred Discharge Orders/Prescriptions Prescriptions: New cephalexin 500 mg capsule 500 mg PO Q6H 7 Days Qty: 28 0RF Continued metformin 500 mg tablet extended release 24 hr 1,500 mg PO DAILY Patient Comments: TAKE 3 TABLETS BY MOUTH ONCE DAILY metoprolol tartrate 100 mg tablet 100 mg PO DAILY Patient Comments: TAKE 1 TABLET BY MOUTH TWICE DAILY simvastatin 80 mg tablet 80 mg PO DAILY Patient Comments: [NO ORIGINAL SIG] lisinopril 20 mg tablet 20 mg PO DAILY Patient Comments: [NO ORIGINAL SIG] hydrochlorothiazide 25 mg tablet 25 mg PO DAILY Patient Comments: TAKE 1 TABLET BY MOUTH ONCE DAILY ezetimibe 10 mg tablet 10 mg PO DAILY Patient Comments: TAKE 1 TABLET BY MOUTH ONCE DAILY levothyroxine 112 mcg tablet 112 mcg PO DAILY Patient Comments: TAKE 1 TABLET BY MOUTH IN THE MORNING ON AN EMPTY STOMACH glimepiride 4 mg tablet 8 mg PO DAILY Patient Comments: TAKE 1 TABLET BY MOUTH TWICE DAILY citalopram [Celexa] 10 mg tablet 10 mg PO DAILY hydralazine 50 mg tablet 50 mg PO DAILY Patient Comments: TAKE 1 TABLET BY MOUTH ONCE DAILY aspirin [Adult Low Dose Aspirin] 81 mg tablet,delayed release (DR/EC) 81 mg PO DAILY Ozempic 0.25 mg or 0.5 mg (2 mg/3 mL) pen injector 0.25 mg SUBCUT FR Patient Comments: [NO ORIGINAL SIG] hydrocodone-acetaminophen 5-325 mg tablet 1 tab PO Q6H PRN PRN (Reason: Pain) 4 Days Qty: 15 0RF Referrals / Follow Up: Rolanda Smith MD [Med Staff - Active Staff] - Within 1 Month Elle Beckett DO [Primary Care Provider] - Within 2 Weeks Booker Avina MD [Med Staff - Active Staff] - Disposition Disposition (needs filled in before D/C Order can be placed): Home, Self Care Charges/Coding Visit Charges Inpatient E&M: 12275 Disch Hosp >30min
--- NOTE | 2025-01-26 14:32 | PCM.CONS.GEN ---
Assessment & Plan Assessment/Plan (1) Sepsis: QUALIFIERS: Sepsis type: sepsis due to unspecified organism Sepsis acute organ dysfunction status: with acute organ dysfunction Severe sepsis acute organ dysfunction type: encephalopathy Severe sepsis shock status: without septic shock Qualified Code(s): A41.9 - Sepsis, unspecified organism; R65.20 - Severe sepsis without septic shock; G93.41 - Metabolic encephalopathy (2) Bacteremia due to Klebsiella pneumoniae: PLAN: Due to urinary source. Sepsis resolved, much improved on ceftriaxone. Ok for home with 7 more days po keflex. Will follow prn, thank you, d/w Dr. Avina HPI Consult Data Date of Consult: 01/26/25 HPI Narrative Reason for Consultation: bacteremia HPI Narrative: [facility], is a 79 F who presented to ED 01/23/25 with acute onset confusion, not feeling well. Had fever, n/v. She does not recall what happened, no recent illnesses other than several weeks sinus congestion and mild headache. Admitted on ceftriaxone for sepsis with presumed urinary source. Feeling better this AM, fever resolved, no abd pain, no dysuria. No n/v/d. Full ROS performed and neg except as noted above. [facility] Medical History Hypothyroidism Hyperlipidemia Type 2 diabetes mellitus Hypertension Home Medications ?Medication ?Instructions ?Recorded ?Last Taken ?Type aspirin 81 mg tablet,delayed 81 mg PO DAILY 04/01/24 Unknown History release (Adult Low Dose Aspirin) citalopram 10 mg tablet (Celexa) 10 mg PO DAILY 04/01/24 Unknown History ezetimibe 10 mg tablet 10 mg PO DAILY 04/01/24 Unknown History glimepiride 4 mg tablet 8 mg PO DAILY 04/01/24 Unknown History hydralazine 50 mg tablet 50 mg PO DAILY 04/01/24 Unknown History hydrochlorothiazide 25 mg tablet 25 mg PO DAILY 04/01/24 Unknown History hydrocodone-acetaminophen 5-325mg 1 tab PO Q6H PRN PRN Pain 4 days 04/01/24 Unknown Rx 5mg-325mg #15 TABLETS levothyroxine 112 mcg tablet 112 mcg PO DAILY 04/01/24 Unknown History lisinopril 20 mg tablet 20 mg PO DAILY 04/01/24 Unknown History metformin 500 mg tablet,extended 1,500 mg PO DAILY 04/01/24 Unknown History release 24 hr metoprolol tartrate 100 mg tablet 100 mg PO DAILY 04/01/24 Unknown History semaglutide 0.25 mg or 0.5 mg (2 0.25 mg subcut FR 04/01/24 Unknown History mg/3 mL) subcutaneous pen injector (Ozempic) simvastatin 80 mg tablet 80 mg PO DAILY 04/01/24 Unknown History cephalexin 500 mg capsule 500 mg PO Q6H 7 days #28 caps 01/26/25 Unknown Rx Allergy/AdvReac Type Severity Reaction Status Date / Time ampicillin AdvReac PT UNSURE Verified 01/23/25 18:18 OF REACTION Surgical History History of bilateral knee replacement Hx of appendectomy Social History Smoking Status: Never smoker Physical Exam Const alert, oriented x3 and no apparent distress General Appearance: cooperative HEENT normocephalic and head/scalp atraumatic Eyes PERRL and EOMs intact bilaterally Neck supple and No nodes Resp normal air movement and clear to auscultation bilaterally Cardio regular rate and regular rhythm GI soft to palpation, non-tender and non-distended Extremity General Extremity: Negative for edema Skin no rashes or lesions noted Neuro CN's II-XII intact bilaterally Lab / Micro Data Attestation: I reviewed the patient's lab results. 01/26/25 05:24 01/26/25 05:24 Labs: Laboratory Results - last 24 hr 01/25/25 16:59: POC Glucose 231 H 01/25/25 21:35: POC Glucose 279 H 01/26/25 05:24: WBC 10.0, RBC 4.17 L, Hgb 11.8 L, Hct 35.3 L, MCV 84.7, MCH 28.3, MCHC 33.4, RDW Std Deviation 41.1, RDW Coeff of Janna 13.2, Plt Count 420, MPV 9.1, Immature Gran % (Auto) 0.800, Neut % (Auto) 72.5 H, Lymph % (Auto) 15.6 L, [place] % (Auto) 9.4, Eos % (Auto) 1.4, Baso % (Auto) 0.3, Absolute Neuts (auto) 7.3, Absolute Lymphs (auto) 1.57, Nucleated RBC % 0, Sodium 136, Potassium 3.5, Chloride 97 L, Carbon Dioxide 25.4, Anion Gap 13, BUN 6, Creatinine 0.65 L, Estim Creat Clear Calc 55.09, Est GFR (MDRD) Non-Af 89, BUN/Creatinine Ratio 9.3 L, Glucose 202 H, Calcium 8.6 01/26/25 06:12: POC Glucose 214 H 01/26/25 11:03: POC Glucose 283 H Micro: Microbiology 01/25/25 16:00 Stool Enteric Bacteriology - Final 01/23/25 20:11 Blood Culture (Wb) - Left Hand Blood Culture - Final GNR lactose wage conciliator 01/23/25 19:32 Blood Culture (Wb) - Left Hand Blood Culture - Final Klebsiella pneumoniae sp pneum 01/25/25 15:15 Stool Clostridioides difficile (PCR) - Final
== END 2025-01-26 13:43 | disposition home or self-care (01) | DRG 871 ==
LOC: ED 01-24 00:37 → ICU 01-24 04:40 → PCU 01-24 14:04
PROVIDERS: Internal Medicine; Admitting Provider Internal Medicine; Emergency Provider Emergency Medicine; PCP Internal Medicine; Visit Provider Internal Medicine
DX: A41.50 Gram-negative sepsis, unspecified (principal); G93.41 Metabolic encephalopathy; E87.20 Acidosis, unspecified; E87.3 Alkalosis; N39.0 Urinary tract infection, site not specified; E11.9 Type 2 diabetes mellitus without complications; E03.9 Hypothyroidism, unspecified; I10 Essential (primary) hypertension; F32.A Depression, unspecified; E66.9 Obesity, unspecified; E78.5 Hyperlipidemia, unspecified; M19.90 Unspecified osteoarthritis, unspecified site; E87.6 Hypokalemia; R65.20 Severe sepsis without septic shock; B96.89 Other specified bacterial agents as the cause of diseases classified elsewhere; Z79.84 Long term (current) use of oral hypoglycemic drugs; Z79.891 Long term (current) use of opiate analgesic; Z79.82 Long term (current) use of aspirin; Z79.890 Hormone replacement therapy; Z68.37 Body mass index [BMI] 37.0-37.9, adult; Z79.899 Other long term (current) drug therapy; Z79.02 Long term (current) use of antithrombotics/antiplatelets; Z88.1 Allergy status to other antibiotic agents; B96.1 Klebsiella pneumoniae [K. pneumoniae] as the cause of diseases classified elsewhere; R09.02 Hypoxemia
CPT/HCPCS: 36415; 36600; 70450; 71046; 71275; 74177; 80048; 80053; 80061; 80307; 81001; 82077; 82607; 82746; 82803; 82962; 83036; 83605; 83880; 84439; 84443; 84481; 84484; 85025; 85610; 85730; 87040; 87077; 87086; 87088; 87186; 87449; 87493; 87506; 87631; 87633; 93005; 94762; 97802; 99285; Q9967; A4216